=== PATIENT | male | born 1945 | race Caucasian/White ===

== ENCOUNTER 2023-06-25 12:36 | Inpatient (IN) | payer OTHER, SELFPAY ==
[2023-06-25] VITALS (16 sets, daily range): BP systolic 100–211; BP diastolic 42–77; BMI 29.6
--- NOTE | 2023-06-25 07:42 | ED.GENMED ---
History of Present Illness
<Claire Stoner FRAME CATCHER - Last Filed: 06/27/23 16:48>
General
Chief Complaint: Weakness
Source: patient
Exam Limitations: none
Time Seen by Provider: 06/25/23 07:41
Nursing documentation reviewed up to this point in time: agreed with
Travel History
Have you had any contact with someone who has COVID-19?: No
Do you have any symptoms of coronavirus? Fever > 100 degrees, chills, cough, shortness of breath, sore throat, loss of taste or smell, muscle aches, or headache?: No
History of Present Illness
History of Present Illness:
78-year-old male with history of A-fib on Xarelto, CAD, HTN, HLD, TX, CABG, stent, AAA, CKD 3 presents stating
5 days ago in the evening he felt chilled all night long, even with pajamas on and blankets
4 days ago developed constant thirst and feeling dehydrated and nausea w no vomiting. Nausea has subsided
Past 3 days feeling fatigued, weak, no appetite.
Denies CP, SOB, abd pain.
Has exacerbation of his chronic left side neck muscle pain, sees chiropractor weekly for this.
Has frequent urination, small amounts chronically.
Denies fever, diarrhea
No recent travel, no known sick contacts.
Past History
<Claire Stoner, FRAME CATCHER - Last Filed: 06/27/23 16:48>
Past History
ED Past Medical History: Arrthythmia, CAD, HTN, Hypercholesterolemia and Renal failure (CKI 3)
ED Past Surgical History: Cardiac (stents 2005, CABG x 3 2007, L femoral stent 2021), Orthopedic and Tonsilectomy
Patient has exhibited threatening behavior?: No
PSI?: No
Social History
Tobacco: Former smoker
Personal:
Living: with family
Employment: Employed
Review of Systems
<Claire Stoner, FRAME CATCHER - Last Filed: 06/27/23 16:48>
Review of Systems
Allergies reviewed?: Yes
All Other Systems: ROS reviewed and negative except as documented in HPI and ROS
Constitutional: Reports fever, fatigue and chills
EENT: Denies sore throat or runny nose
Respiratory: Denies trouble breathing
Cardiac: Reports palpitations (chronic a fib); Denies chest pain, diaphoresis or syncope
ABD/GI: Reports nausea and anorexia; Denies abdominal pain, vomiting, diarrhea, constipated, bloody stools or black stools
: Reports frequency; Denies dysuria, flank pain, difficulty voiding or urgency
Musculoskeletal: Reports neck pain (chronic intermittent left neck pain); Denies edema or back pain
Skin: Reports no symptoms
Neurological: Reports no symptoms
Phy Exam
<Claire Stoner, FRAME CATCHER - Last Filed: 06/27/23 16:48>
Physical Exam
Physical Exam:
GENERAL: No acute distress. A&Ox3.
CONSTITUTIONAL: T 100.3
EYES: PERRL, conjunctivae normal
ENMT: moist mucus membranes, Pharynx nl, TMs normal
RESPIRATORY: Regular respirations, nonlabored, lungs clear.
CARDIOVASCULAR: Irregularly irregular, rate controlled. No murmurs, no rubs.
GI: Soft, nontender, normal BS
MUSCULOSKELETAL: Tender left paracervical ST, limited ROM to rotation to left. No nuchal rigidity. Moves with ease. Well perfused. No edema
SKIN: Warm, dry, pink
PSYCH: Normal mood and affect. Well kept, interactive and appropriate
NEUROLOGIC: Awake, alert and oriented. No focal neurological deficits
Course
<Claire Stoner, FRAME CATCHER - Last Filed: 06/27/23 16:48>
Orders/Labs/Results
Orders:
Orders
06/25/23 07:53
0.9% Sodium Chloride 500 ml [Nss] 500 ml IV BOLUS
06/25/23 07:58
Electrocardiogram (*1) Urgent
Reason for Study: Fatigue / Weakness
EKG- Treatment ONCE
06/25/23 08:10
C-Reactive Protein Urgent
Comment: ADD ON
COVID-19 Antigen Urgent
Source: Nasal Swab
Complete Blood Count/With Diff Urgent
Comprehensive Metabolic Panel Urgent
Lactic Acid Q4H
Comment: CANCEL 2nd LACTIC ACID IF 1st LACTIC ACID IS LESS THAN 2
NT-proBNP Urgent
Troponin I Urgent
Blood Culture Q30M
JACKY Source: Blood/Venous
Specimen Description:
Influenza A+B Rapid Molecular Urgent
JACKY Source: Nasal Swab
Specimen Description:
Chest [CR Chest - 2 Views ] Urgent
Comment:
Reason For Exam: fever, fatigue, sig cardiac history
06/25/23 08:11
Blood Culture Q30M
JACKY Source: Blood/Venous
Specimen Description:
06/25/23 09:41
Urinalysis Reflex To Culture Urgent
Date Specimen was Collected: 06/25/23
Time Specimen was Collected: 09:39
06/25/23 Lunch
Cholesterol Lowering
At Your Request: Full Participation
Cholesterol Lowering: Sodium, 2 Gram
06/25/23 12:01
Add On- LAB Routine
Tests Added?: CRP
06/25/23 12:02
Influenza A+B Rapid Molecular Routine
JACKY Source: Nasal Swab
Specimen Description:
06/25/23 12:04
Admit/Transfer Patient As Directed
Co-Sign Provider:
Level of Care: Inpatient admission
Assign to:: Telemetry
Physician / Group: Pam/hospitalist
Diagnosis: L neck pain
Reason for Telemetry: Arrhythmia
Date to Stop Telemetry: 06/28/23
Time to Stop Telemetry: 11:00
Reason for Hospitalization: L neck pain
Expected length of stay greater than two midnights?: Yes
ELOS- Estimated Length of Stay in days: 5
I certify the patient meets the requirements for IP care: Yes
06/25/23 12:06
Code Status As Directed
Resuscitation Status: Full Code
06/25/23 12:15
0.9% Sodium Chloride 1000 ml [Nss] 1,000 ml IV 60 mls/hr
Lidocaine [Lidocaine 4% Patch] 1 patch TOPICAL DAILY
06/25/23 16:55
Acetaminophen [Tylenol] 650 mg PO Q4HPRN PRN
Ondansetron Injectable [Zofran] 4 mg IV Q6HPRN PRN
06/25/23 16:55
Activity As Directed
Activity Level: As Tolerated
Vital Signs As Directed
Frequency: Per unit guidelines
06/25/23 18:56
Troponin I Q8H
Blood Culture Q30M
JACKY Source: Blood/Venous
Specimen Description:
06/25/23 20:00
Remove Patch [Remove Lidocaine Patch] See Dose Instructions REMOVE DAILY@1999
06/25/23 22:00
Aspirin Low Dose EC [Aspir Low (Enteric Coated)] 81 mg PO HS
Atorvastatin [Lipitor] 40 mg PO HS
Rivaroxaban [Xarelto] 20 mg PO HS
Tamsulosin [Flomax] 0.4 mg PO HS
06/26/23 01:53
Basic Metabolic Panel IN AM
Complete Blood Count/No Diff IN AM
Magnesium IN AM
Troponin I Q8H
06/26/23 06:42
MR Cervical Spine Without Routine
Reason For Exam: neck pain with radiation to shoulder
Recent pill cam endoscopy?: No
06/26/23 08:00
Amlodipine [Norvasc] 10 mg PO DAILY
Finasteride [Proscar] 5 mg PO DAILY
Metoprolol Xl [Toprol Xl] 25 mg PO DAILY
06/27/23 06:49
Basic Metabolic Panel IN AM
Complete Blood Count/No Diff IN AM
06/28/23 06:00
Basic Metabolic Panel IN AM
Complete Blood Count/No Diff IN AM
06/28/23 11:00
DC Protocol for Telemetry ONCE
Abnormal Lab Results
06/25/23
08:10
WBC 11.9 H 10^3/uL
(4.8-10.8)
RBC 4.15 L 10^6/uL
(4.70-6.10)
Hgb 12.6 L g/dL
(13.0-18.0)
Hct 35.1 L %
(39.0-52.0)
Plt Count 119 L 10^3/uL
(130-400)
MPV 11.6 H fL
(7.4-10.4)
Abs Immat Gran (auto) 0.1 H 10^3/uL
(0-0.05)
Absolute Neuts (auto) 10.4 H 10^3/uL
(1.4-6.5)
Absolute Lymphs (auto) 0.4 L 10^3/uL
(1.2-3.4)
Absolute Monos (auto) 1.0 H 10^3/uL
(0.1-0.6)
Immature Gran % 0.7 H %
(0-0.5)
Neutrophils % 87.1 H %
(42.2-75.2)
Lymphocytes % 3.7 L %
(20.5-51.1)
Sodium 129 L mmol/L
(135-145)
BUN 34 H mg/dl
(9-20)
Creatinine 1.7 H mg/dL
(0.7-1.3)
Glucose 138 H mg/dl
(70-99)
Total Bilirubin 3.2 H mg/dl
(0.2-1.3)
C-Reactive Protein 186.50 H mg/L
(0.0-10.00)
06/25/23 08:10
06/25/23 08:10
Vital Signs
Initial and Last Documented VS:
Initial Vital Signs
Temp Pulse Resp BP Pulse Ox
98.4 F 64 18 119/57 93
06/25/23 07:31 06/25/23 07:31 06/25/23 07:31 06/25/23 07:31 06/25/23 07:31
Last Documented Vital Signs
Temp Pulse Resp BP Pulse Ox
97.6 F 59 18 162/59 96
06/27/23 15:15 06/27/23 15:15 06/27/23 15:15 06/27/23 15:15 06/27/23 15:15
Nanny/Household Manager consulted with Physician
Nanny/Household Manager consulted with physician?: Yes
Name of Physician Consulted: Galo
<Kris Rosenthal, DO - Last Filed: 06/25/23 09:42>
Orders/Labs/Results
Orders:
Orders
06/25/23 07:53
0.9% Sodium Chloride 500 ml [Nss] 500 ml IV BOLUS
06/25/23 07:58
Electrocardiogram (*1) Urgent
Reason for Study: Fatigue / Weakness
EKG- Treatment ONCE
06/25/23 08:10
C-Reactive Protein Urgent
Comment: ADD ON
COVID-19 Antigen Urgent
Source: Nasal Swab
Complete Blood Count/With Diff Urgent
Comprehensive Metabolic Panel Urgent
Lactic Acid Q4H
Comment: CANCEL 2nd LACTIC ACID IF 1st LACTIC ACID IS LESS THAN 2
NT-proBNP Urgent
Troponin I Urgent
Blood Culture Q30M
JACKY Source: Blood/Venous
Specimen Description:
Influenza A+B Rapid Molecular Urgent
JACKY Source: Nasal Swab
Specimen Description:
Chest [CR Chest - 2 Views ] Urgent
Comment:
Reason For Exam: fever, fatigue, sig cardiac history
06/25/23 08:11
Blood Culture Q30M
JACKY Source: Blood/Venous
Specimen Description:
06/25/23 09:41
Urinalysis Reflex To Culture Urgent
Date Specimen was Collected: 06/25/23
Time Specimen was Collected: 09:39
06/25/23 Lunch
Cholesterol Lowering
At Your Request: Full Participation
Cholesterol Lowering: Sodium, 2 Gram
06/25/23 12:01
Add On- LAB Routine
Tests Added?: CRP
06/25/23 12:02
Influenza A+B Rapid Molecular Routine
JACKY Source: Nasal Swab
Specimen Description:
06/25/23 12:04
Admit/Transfer Patient As Directed
Co-Sign Provider:
Level of Care: Inpatient admission
Assign to:: Telemetry
Physician / Group: Pam/hospitalist
Diagnosis: L neck pain
Reason for Telemetry: Arrhythmia
Date to Stop Telemetry: 06/28/23
Time to Stop Telemetry: 11:00
Reason for Hospitalization: L neck pain
Expected length of stay greater than two midnights?: Yes
ELOS- Estimated Length of Stay in days: 5
I certify the patient meets the requirements for IP care: Yes
06/25/23 12:06
Code Status As Directed
Resuscitation Status: Full Code
06/25/23 12:15
0.9% Sodium Chloride 1000 ml [Nss] 1,000 ml IV 60 mls/hr
Lidocaine [Lidocaine 4% Patch] 1 patch TOPICAL DAILY
06/25/23 16:55
Acetaminophen [Tylenol] 650 mg PO Q4HPRN PRN
Ondansetron Injectable [Zofran] 4 mg IV Q6HPRN PRN
06/25/23 16:55
Activity As Directed
Activity Level: As Tolerated
Vital Signs As Directed
Frequency: Per unit guidelines
06/25/23 18:56
Troponin I Q8H
Blood Culture Q30M
JACKY Source: Blood/Venous
Specimen Description:
06/25/23 20:00
Remove Patch [Remove Lidocaine Patch] See Dose Instructions REMOVE DAILY@1999
06/25/23 22:00
Aspirin Low Dose EC [Aspir Low (Enteric Coated)] 81 mg PO HS
Atorvastatin [Lipitor] 40 mg PO HS
Rivaroxaban [Xarelto] 20 mg PO HS
Tamsulosin [Flomax] 0.4 mg PO HS
06/26/23 01:53
Basic Metabolic Panel IN AM
Complete Blood Count/No Diff IN AM
Magnesium IN AM
Troponin I Q8H
06/26/23 06:42
MR Cervical Spine Without Routine
Reason For Exam: neck pain with radiation to shoulder
Recent pill cam endoscopy?: No
06/26/23 08:00
Amlodipine [Norvasc] 10 mg PO DAILY
Finasteride [Proscar] 5 mg PO DAILY
Metoprolol Xl [Toprol Xl] 25 mg PO DAILY
06/27/23 06:49
Basic Metabolic Panel IN AM
Complete Blood Count/No Diff IN AM
06/28/23 06:00
Basic Metabolic Panel IN AM
Complete Blood Count/No Diff IN AM
06/28/23 11:00
DC Protocol for Telemetry ONCE
Abnormal Lab Results
06/25/23
08:10
WBC 11.9 H 10^3/uL
(4.8-10.8)
RBC 4.15 L 10^6/uL
(4.70-6.10)
Hgb 12.6 L g/dL
(13.0-18.0)
Hct 35.1 L %
(39.0-52.0)
Plt Count 119 L 10^3/uL
(130-400)
MPV 11.6 H fL
(7.4-10.4)
Abs Immat Gran (auto) 0.1 H 10^3/uL
(0-0.05)
Absolute Neuts (auto) 10.4 H 10^3/uL
(1.4-6.5)
Absolute Lymphs (auto) 0.4 L 10^3/uL
(1.2-3.4)
Absolute Monos (auto) 1.0 H 10^3/uL
(0.1-0.6)
Immature Gran % 0.7 H %
(0-0.5)
Neutrophils % 87.1 H %
(42.2-75.2)
Lymphocytes % 3.7 L %
(20.5-51.1)
Sodium 129 L mmol/L
(135-145)
BUN 34 H mg/dl
(9-20)
Creatinine 1.7 H mg/dL
(0.7-1.3)
Glucose 138 H mg/dl
(70-99)
Total Bilirubin 3.2 H mg/dl
(0.2-1.3)
C-Reactive Protein 186.50 H mg/L
(0.0-10.00)
06/25/23 08:10
06/25/23 08:10
Vital Signs
Initial and Last Documented VS:
Initial Vital Signs
Temp Pulse Resp BP Pulse Ox
98.4 F 64 18 119/57 93
06/25/23 07:31 06/25/23 07:31 06/25/23 07:31 06/25/23 07:31 06/25/23 07:31
Last Documented Vital Signs
Temp Pulse Resp BP Pulse Ox
97.6 F 59 18 162/59 96
06/27/23 15:15 06/27/23 15:15 06/27/23 15:15 06/27/23 15:15 06/27/23 15:15
<Clairenicole Stoner, FRAME CATCHER - Last Filed: 06/27/23 16:48>
MDM/Problems Addressed
Differential Diagnosis Includes:
viral vs bacterial illness, UTI, Covid, Flu,
MDM/Problems Addressed:
78-year-old male with history of A-fib on Xarelto, CAD, HTN, HLD, TX, CABG, stent, AAA, CKD 3 presents stating
5 days ago in the evening he felt chilled all night long, even with pajamas on and blankets
4 days ago developed constant thirst and feeling dehydrated and nausea w no vomiting. Nausea has subsided
Past 3 days feeling fatigued, weak, no appetite.
Denies CP, SOB, abd pain.
Has exacerbation of his chronic left side neck muscle pain, sees chiropractor weekly for this.
Has frequent urination, small amounts chronically.
Denies fever, diarrhea
No recent travel, no known sick contacts.
Temp 100.3 by this examiner, no meningeal signs.
Pulse ox 95% RA
Mildly ill appearing, pleasant, alert & Oriented
9:09 AM
EKG: Afib Rate 70
CBC: Mild leukocytosis, mild thrombocytopenia,
CMP: Na+ 129 (chronic hyponatremia) BUN/creat consistent with his CKD
Troponin: WNL
BNP at baseline
Infuenza A&B neg
Covid neg
10:[address] Rosenthal and to evaluate, states she is not comfortable taking patient home
Chest x-ray: Radiology report read: IMPRESSION:
Pulmonary vasculature is top normal. Please correlate for any signs of early congestive heart failure.
There is hyperaeration consistent with changes of COPD
Plan: Admit: Acute dehydration, hyponatremia, generalized weakness, low-grade fever
Hospitalist notified of admission
Chronic conditions affecting care: HTN, CAD, Arrhythmia (Afib), PVD and Kidney disease
<Claire Stoner FRAME CATCHER - Last Filed: 06/27/23 16:48>
*Critical Care Note
Total Time (30-74mins, 75-104mins- exclusive of procedures): Not Applicable
ED Attending Note
<Claire Stoner FRAME CATCHER - Last Filed: 06/27/23 16:48>
-
Portions of this chart may have been created with voice recognition software.� Occasional wrong word or��sound alike� substitutions may have occurred due to the inherent limitations of voice recognition software.
<Kris Rosenthal DO - Last Filed: 06/25/23 09:42>
ED Attending Note
Patient seen and examined by attending physician: Yes
I performed the substantive portion of visit, reviewed & personally made and approve the management plan that is documented in note by myself or FREDDIE.: Yes
ED Attending Note:
I have seen and evaluated the patient with a [id number] encounter. I have spoken to the advance practicer provider and involved in the medical history, the physical exam, medical decision making.
Evaluation and management service: agree unless noted differently below.
Results interpretation: agree unless noted differently below.
Focused HPI: 78-year-old male presenting with generalized weakness. Patient initially thought he could have a viral bug but was worried how long he has been affected. at bedside is concerned that he is weaker than normal. He now needs help
getting out of bed and getting his clothes on
Physical exam: Dry mucous membranes. Abdomen soft and nontender. No leg edema
Medical Decision Making: Patient complains of general weakness. Patient does appear hypovolemic. However, chest x-ray concerning for early CHF. Patient states becomes weak with exertion. Urinalysis pending but will likely admit given age and
complaints
Discharge Plan
Departure
Patient Disposition: Admit
Date of Disposition: 06/25/23
Time of Disposition: 10:27
Admit to: Med/Surg
Presentation/result/management discussed w/ accepting MD/DO: Hospitalist
Condition: Fair
Covid-19: Negative COVID-19
Discharge Problem:
General weakness, Hyponatremia, Acute dehydration
Interventions
Interventions:
*Risk Screen - Suicide Last Done: 06/25/23 07:31
*General Assessment Last Done: 06/25/23 07:31
*Neglect/Abuse Screening Last Done: 06/25/23 07:31
ED- Fall Risk Assessment Last Done: 06/25/23 08:41
*ED COVID-19 Vaccine History Last Done: 06/25/23 08:41
*Nursing Disposition Last Done: 06/25/23 18:05
ED- Neurological Assessment Last Done: 06/25/23 08:41
ED- Pulmonary Assessment Last Done: 06/25/23 08:41
Discharge Date and Time
Discharge Date/Time: 06/25/23 18:10
[2023-06-25] MEDS: NSS 500 IV (08:11)
[2023-06-25 08:45] LABS: % Basophils 0.3 % (0-2); % Eosinophils 0.1 % (0-6); % Immature Granulocytes 0.7 % (0-0.5); % Lymphocytes 3.7 % (20.5-51.1); % Monocytes 8.1 % (1.7-9.3); % Neutrophils 87.1 % (42.2-75.2); Absolute Immature Granulocytes 0.1 10^3/uL (0-0.05); Absolute Lymphocytes 0.4 10^3/uL (1.2-3.4); Absolute Neutrophils 10.4 10^3/uL (1.4-6.5); Hematocrit 35.1 % (39.0-52.0); Hemoglobin 12.6 g/dL (13.0-18.0); Mean Corp Hgb Conc. 35.9 g/dL (33.0-37.0); Mean Corpuscular Hgb 30.4 pg (27.0-31.0); Mean Corpuscular Volume 84.6 fL (80.0-94.0); Mean Platelet Volume 11.6 fL (7.4-10.4); Nucleated Red Blood Cells % 0 % (-); Platelet Count 119 10^3/uL (130-400); Red Blood Cell Count 4.15 10^6/uL (4.70-6.10); Red Cell Dist. Width 14.2 % (11.5-14.5); White Blood Cell Count 11.9 10^3/uL (4.8-10.8)
[2023-06-25 08:56] LABS: ALT (SGPT) 35 U/L (0-50); AST (SGOT) 42 U/L (17-59); Albumin 3.8 g/dl (3.5-5.0); Alkaline Phosphatase 76 U/L (38-126); Blood Urea Nitrogen 34 mg/dl (9-20); Calcium 9.2 mg/dl (8.4-10.2); Carbon Dioxide 23 mmol/L (22-30); Chloride 98 mmol/L (98-107); Glucose 138 mg/dl (70-99); Potassium 3.8 mmol/L (3.5-5.1); Sodium 129 mmol/L (135-145); Total Bilirubin 3.2 mg/dl (0.2-1.3); Total Protein 6.5 g/dl (6.3-8.2)
[2023-06-25 09:08] LABS: NT-proBNP 3240 pg/ml; Troponin I 0.028 ng/ml
--- NOTE | 2023-06-25 09:30 | EDRN ---
Contacted lab to verify specimen was acceptable for the COVID test as it had not resulted. Was told it would be about 2 more minutes.
Reminded patient I needed a specimen of urine. patient states he hasn't had to go even though he has been going so frequently at home. Dr. Rosenthal at the bedside assessing the patient.
[2023-06-25 09:37] LABS: COVID-19 Antigen Negative (Negative)
[2023-06-25 10:14] LABS: Urine Albumin Trace (Neg - Trace); Urine Bilirubin Negative (Negative); Urine Glucose Negative (Negative); Urine Ketone Negative (Negative); Urine Leukocyte Negative (Negative); Urine Nitrite Negative (Negative); Urine Occult Blood Negative (Negative); Urine Urobilinogen Negative (Neg - 1+)
[2023-06-25 10:15] LABS: Urine Character Clear (Clear); Urine Color Yellow
--- NOTE | 2023-06-25 11:06 | HPS.HSE ---
Family Physician
-
Family Physician: Cory Gannon
Chief Complaint
-
neck pain, chills, weakness
History of Present Illness
HPI: 78-year-old male PMH Permanent A-fib on Xarelto, CAD s/p stent and CABG, HTN, HLD, AAA, CKD 3, carotid stenosis; presented with localized L neck pain (worse than baseline), chills, nausea, weakness and loss of appetitive ongoing for 3 days TYPING SECTION CHIEF.
He denies to fever, CP, SOB, abd pain, change in urination etc.
Medical History
Past Medical History
Past Medical History: Reports Other
Additional Past Medical History:
Past medical history archive reviewed
Recent admission for pneumonia
Acute congestive heart failure with preserved ejection fraction
Permanent atrial fibrillation
Sepsis recently attributed to pneumonia
Coronary artery disease status post CABG
Peripheral vascular disease with, iliac artery angioplasty and occluded right SFA
Bilateral coronary artery stenosis
Bilateral renal artery stenosis
Dyslipidemia
Hypertension
Chronic anemia
Pulmonary hypertension
Surgical history:
FERNANDO cardioversion
Coronary artery bypass graft
Cardiac cath and stenting
Left cataract surgery
Lower extremity angiogram
Tonsillectomy
Social history: Lives at home with the family, denies smoking and drinks a glass of wine daily, and is independent.
Family history: Positive for hypertension coronary artery disease.
Past Surgical History: Reports Other
Social History
Unable to obtain full social history at this time due to: Other
Tobacco: Former Smoker (quit 2005)
Personal:
Living: With Family
Family History
Family History: Other
Allergies / Home Medications
uiAllergies reflects when Allergies were last updated in [facility].
Home Medications with original date entered in [facility]
Allergy/Medication List:
Allergies
Allergy/AdvReac Type Severity Reaction Status Date / Time
No Known Allergies Allergy Verified 06/25/23 07:31
Home Medications
aspirin 81 mg tablet,delayed release 81 mg PO HS Blood clot prevention/tx 12/05/14
atorvastatin 40 mg tablet 40 mg PO HS High cholesterol 12/05/14
rivaroxaban 20 mg tablet (Xarelto) 20 mg PO HS Blood clot prevention/tx 06/09/21
losartan 100 mg tablet 100 mg PO DAILY Blood Pressure 12/10/22
torsemide 10 mg tablet 10 mg PO DAILY Fluid Retention/Swelling 12/10/22
[place] Xl 600 mg PO BID Supplement 06/25/23
acetaminophen 500 mg tablet (Tylenol Extra Strength) 500 mg PO Q6H PRN mild pain 06/25/23
amlodipine 10 mg tablet 10 mg PO DAILY Blood Pressure 06/25/23
cholecalciferol (vitamin D3) 125 mcg (5,000 unit) tablet 125 mcg PO DAILY@1300 Supplement 06/25/23
coQ10 (ubiquinol) 200 mg capsule 200 mg PO DAILY@1300 Supplement 06/25/23
finasteride 5 mg tablet 5 mg PO DAILY prostate condition 06/25/23
glucosamine-chondroitin 750 mg-600 mg tablet 2 tab PO DAILY@1300 Supplement 06/25/23
mczkzxau-oxbfvi-vjbpm extract 5 mg-6 mg-150 mg capsule (Fruit and Vegetable Daily) 6 cap PO DAILY Supplement 06/25/23
metoprolol succinate 25 mg tablet,extended release 24 hr (Toprol XL) 25 mg PO DAILY Blood Pressure 06/25/23
spironolactone 50 mg tablet 50 mg PO DAILY Blood Pressure 06/25/23
tamsulosin 0.4 mg capsule 0.4 mg PO HS Urinary Issue 06/25/23
therapeutic multivitamin 1 tab PO DAILY@1300 Supplement 06/25/23
turmeric 400 mg capsule 400 mg PO DAILY@1300 Supplement 06/25/23
Review of Systems
-
Constitutional: Reports See HPI
Musculoskeletal: Reports See HPI
Physical Exam
Vital Signs
Vital Signs
Temp Pulse Resp BP Pulse Ox
37.9 C 64 18 119/57 93
06/25/23 08:40 06/25/23 07:31 06/25/23 07:31 06/25/23 07:31 06/25/23 07:31
Physical Exam
General: Well Developed, Well Nourished, No Apparent Distress, Comfortable and Conversant
HEENT: NormoCephalic, Moist mucous membranes and Atraumatic
Respiratory: Clear
Cardiac: S1/S2 and Irregular Rhythm; No Murmur or Rub
GI: Soft, Non Tender, Non Distended and Normal Bowel Sounds; No Organomegaly
Rectal: Deferred by Provider
Musculoskeletal: No Clubbing, No Cyanosis, No Edema and Other (L neck localized pain)
Skin: No Rash
Neuro: Awake
Psych: Calm and Intact Judgment/Insight
Laboratory Results
-
06/25/23 08:10
06/25/23 08:10
Laboratory Results
Lactic Acid Cancelled 06/25/23 12:15
Total Bilirubin 3.2 mg/dl (0.2-1.3) H 06/25/23 08:10
AST 42 U/L (17-59) 06/25/23 08:10
ALT 35 U/L (0-50) 06/25/23 08:10
Alkaline Phosphatase 76 U/L (38-126) 06/25/23 08:10
Troponin I 0.028 ng/ml 06/25/23 08:10
Data Reviewed
-
Lab Data: Labs Reviewed by me
Impression/Plan
-
HPI: 78-year-old male PMH Permanent A-fib on Xarelto, CAD s/p stent and CABG, HTN, HLD, AAA, CKD 3, carotid stenosis; presented with localized L neck pain (worse than baseline), chills, nausea, weakness and loss of appetitive ongoing for 3 days TYPING SECTION CHIEF.
He denies to fever, CP, SOB, abd pain, change in urination etc.
A/P:
# localized L neck pain (worse than baseline), likely MSL in etiology
check MRI cervical spine to r/o spinal cord involvement
Tylenol PRN and start trial of lidocaine patch
offered Flexeril but pt would like to hold off for now due to S/E profile
PT OT eval
# weakness/poor PO intake with prerenal RANCHO on CKD 3
# Hyponatremia likely due to above
SCr 1.7 from baseline 1.1
s/p NSS 500 cc in the ED, cont gentle IVF
Monitor BMP
Hold TYPING SECTION CHIEF losartan/Aldactone with RANCHO
# chills without fever
COVID negative, pending Flu
can check blood Cx but doubt would be positive
Check CRP
# non-ischemic myocardia injury
trend troponin until peak/plateaued
Other PMH:
# Permanent A-fib
cont TYPING SECTION CHIEF Toprol and Xarelto
# CAD s/p CABG
# HTN
cont TYPING SECTION CHIEF Toprol
hold losartan/Aldactone due to RANCHO
# HLD
# AAA
# h/o carotid stenosis
DVT ppx: TYPING SECTION CHIEF Xalreto
FC
[2023-06-25] MEDS: LIDOCAINE 4% PATCH 1 PATCH TOPICAL (15:48)
[2023-06-25] MEDS: NSS IV (20:12)
[2023-06-25] MEDS: NSS 1000 IV (20:12)
[2023-06-25] MEDS: LIPITOR 40 MG PO (21:44)
[2023-06-25] MEDS: ASPIR LOW (ENTERIC COATED) 81 MG PO (21:44)
[2023-06-25] MEDS: FLOMAX 0.400000000000000022 MG PO (21:44)
[2023-06-25] MEDS: XARELTO 20 MG PO (21:44)
[2023-06-25] MEDS: TYLENOL 650 MG PO (23:01)
[2023-06-26] VITALS (7 sets, daily range): BP systolic 147–172; BP diastolic 55–71
[2023-06-26 00:35] LABS: Procalcitonin 0.89 ng/ml (0.0-0.25)
--- NOTE | 2023-06-26 01:25 | W.PN.UPDATE ---
Update Note
Progress Note Update
Blood culture result shows Gram Positive Cocci, temp of 101.6, WBC 12.9 in AM 4/5, UA negative, chest xray neg, Pro-pola elevated 0.89, BP 101/63 HR 78 19 92% RA, no open wounds or abscess noted, Possible sepsis, Infection from unknown source at
present, MRI spinal pending.
Will start on Vancomycin IV, Zosyn IV and NSS 60 cc/hr. will Consult ID, Patient has no new symptoms.
[2023-06-26] MEDS: ZOSYN 50 IV ×2 (01:44→08:38)
[2023-06-26] MEDS: VANCOCIN 540 MG IV (02:16)
[2023-06-26 02:19] LABS: Blood Urea Nitrogen 37 mg/dl (9-20); Calcium 9.1 mg/dl (8.4-10.2); Carbon Dioxide 22 mmol/L (22-30); Chloride 100 mmol/L (98-107); Estimated Creatinine Clearance 45 ml/min; Glucose 132 mg/dl (70-99); Magnesium 1.8 mg/dl (1.6-2.3); Potassium 3.8 mmol/L (3.5-5.1); Sodium 130 mmol/L (135-145); eGFR 47.06
[2023-06-26 02:28] LABS: Hematocrit 33.4 % (39.0-52.0); Hemoglobin 11.9 g/dL (13.0-18.0); Mean Corp Hgb Conc. 35.6 g/dL (33.0-37.0); Mean Corpuscular Hgb 30.1 pg (27.0-31.0); Mean Corpuscular Volume 84.6 fL (80.0-94.0); Mean Platelet Volume 11.6 fL (7.4-10.4); Platelet Count 114 10^3/uL (130-400); Red Blood Cell Count 3.95 10^6/uL (4.70-6.10); Red Cell Dist. Width 14.4 % (11.5-14.5); White Blood Cell Count 10.7 10^3/uL (4.8-10.8)
[2023-06-26 02:32] LABS: Troponin I 0.043 ng/ml
[2023-06-26 07:15] LABS: Troponin I 0.024 ng/ml
--- NOTE | 2023-06-26 08:15 | PHA.VAN.IN ---
Assessment
- Assessment
Renal Function: Appears similar to baseline
Maximum Temperature: 101.6 06/25/23@23:55
Concomitant Antimicrobials: piperacillin/tazo
AUC Dosing Plan
- Dosing Variables
Dosing Weight (kg): 101
Dosing CrCl (ml/min): 45
Vd coefficient (L/kg): 0.7
Plan
- Plan
Initial / Loading Dose: 2000 mg x 1 dose ~0200 06/26/23
Maintenance Regimen: dose by random level for now
Monitoring: random 06/26 06
If SCr remains at current level, can trial 1500 mg q24h ( AUC 524, Trough 13.1, T1/2 16.6h)Will give one dose of 1500 mg today and draw random level in the AM
Pharmacokinetics Vancomycin I
- -
Patient Age: 78
Patient Sex: Male
Vancomycin Day #: 1
Indication: Bacteremia
Requesting Provider: Micah Ewing
Height / Weight:
Height 6 ft 1 in
Actual Weight 101.605 kg
Pertinent Past Medical History: CKD 3
- Vital Signs / Lab Results
Temp Pulse Resp BP Pulse Ox
97.5 F 64 18 147/62 94
06/26/23 03:09 06/26/23 03:09 06/26/23 03:09 06/26/23 03:09 06/26/23 03:09
Lab Results - Hematology
06/25/23 06/26/23
08:10 01:53
WBC 11.9 H 10.7
Lab Results - Chemistry
06/25/23 06/26/23
08:10 01:53
BUN 34 H 37 H
Creatinine 1.7 H 1.5 H
Estimated Creat Clear 45
Albumin 3.8
06/25/23 06/25/23
08:10 12:15
Lactic Acid 1.0 Cancelled
Lab Results - Urine
06/25/23
09:41
Urine Nitrite (Reflex) Negative
Leukocyte Esterase Rfl Negative
Microbiology Results
06/25/23 08:11 Blood Culture - Preliminary
Blood/Venous Positive culture in progress
Gram Stain - Final
06/25/23 08:10 Blood Culture - Preliminary
Blood/Venous Positive culture in progress
Gram Stain - Final
06/25/23 08:10 Influenza Types A & B (YANNI) - Final
Nasal Swab Negative for Influenza A & B, NAAT
Negative results must be combined with clinical observations
and patient history.
Nucleic Acid Amplification test (NAAT)performed on the
[employer] platform.
[2023-06-26] MEDS: TOPROL XL 25 MG PO (08:37)
[2023-06-26] MEDS: NORVASC 10 MG PO (08:37)
[2023-06-26] MEDS: PROSCAR 5 MG PO (08:37)
[2023-06-26] MEDS: LIDOCAINE 4% PATCH 1 PATCH TOPICAL (08:38)
--- NOTE | 2023-06-26 10:54 | W.PN.HOSP.TC ---
Today's Communication/Plan
-
see A/P
Assessment / Plan
Assessment / Plan
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
He denies to fever, CP, SOB, abd pain, change in urination etc.
A/P:
# localized L neck pain (worse than baseline), likely MSL in etiology
check MRI cervical spine to r/o spinal cord involvement
Tylenol PRN and start trial of lidocaine patch
offered Flexeril but pt would like to hold off due to S/E profile
PT OT eval
# weakness/poor PO intake with prerenal RANCHO on CKD 3
# Hyponatremia likely due to above
SCr 1.7 -> 1.5 today; baseline 1.1
s/p NSS 500 cc in the ED, observe off gentle IVF (admission CXR actually noted top normal pulmonary vasculature which could indicate early congestive heart failure).
Monitor BMP
Hold SKYDIVING INSTRUCTOR losartan/Aldactone with RANCHO
# sepsis POA due to bacteremia , currently unclear source
follow blood culture S/S, check repeat blood Cx until clearance
COVID/Flu negative
Procal elevated at 0.89 (but pt also has RANCHO)
CRP elevated at 186
Started vanc/Zosyn, cont
ID consulted
# non-ischemic myocardia injury
trend troponin until peak/plateaued
Other PMH:
# Permanent A-fib
cont SKYDIVING INSTRUCTOR Toprol and Xarelto
# CAD s/p CABG
# HTN
cont SKYDIVING INSTRUCTOR Toprol
hold losartan/Aldactone due to RANCHO
# HLD
# AAA
# h/o carotid stenosis
DVT ppx: SKYDIVING INSTRUCTOR Xalreto
FC
DW son at bedside
total time spent 51 min
Anticipated Discharge: > 48 hours
Subjective/Interval History
-
Date of Service: June 26, 2023
Objective Data
-
Labs:
Laboratory Results
06/26/23
01:53
WBC 10.7
Hgb 11.9 L
Hct 33.4 L
Plt Count 114 L
Sodium 130 L
Potassium 3.8
Chloride 100
Carbon Dioxide 22
BUN 37 H
Creatinine 1.5 H
Glucose 132 H
Calcium 9.1
Vital Signs:
Vital Signs
Temp Pulse Resp BP Pulse Ox
36.5 C 61 18 153/65 94
06/26/23 07:45 06/26/23 07:45 06/26/23 07:45 06/26/23 07:45 06/26/23 07:45
I&O
06/25/23 06/26/23 06/27/23
06:59 06:59 06:59
Intake Total 1230 / 1230
Balance 1230 / 1230
Review of Systems
-
History Source: Patient
All other systems: Reviewed and negative
Physical Exam
-
General: Well Developed, Well Nourished, No Apparent Distress and Comfortable
HEENT: Normocephalic and Atraumatic
Respiratory: Clear to Auscultation and Non Labored Respirations; Negative Accessory Resp Muscle Use
Cardiac: Regular Rhythm and S1/S2
GI: Soft, Nontender and Nondistended
Skin: Warm and Dry
Neuro: Awake and AO x 3
Hematologic / Lymphatic: No Lymphadenopathy
Psych: Calm and Intact Judgement/Insight
Data Reviewed
-
Labs: Labs Reviewed by me
--- NOTE | 2023-06-26 12:09 | CON.ID ---
Consultation
-
Date/Time Consultation Requested: 06/26/2023 0622
Date/Time Consultation Performed: 06/26/2023 1210
Requesting Provider: Dr. Chey Orozco
Performing Provider: Dr. Tiesha Eckert
Reason for Consultation: Neck pain, bacteremia
Chief Complaint / Past History
Chief Complaint
fever, chills
History of Present Illness
78 year old male with Afib, CAD, PAD, CKD3 who started having chills on 06/21. + subjective fever. + weakness, poor appetite. He came to ED 06/25/23. T=101.5, WBC 11.9. Started on Vanco/zosyn. Blood cx's x 3 + strep. He c/p acute on chronic left neck
pain. Pain radiates to back of neck. No recent neck injury. He banged his left thurman agains the car door 4 weeks ago; the wound has healed after 3 weeks. No recent dental work. No SOB. + mild cough after eating. No sinus congestion or sore throat.
No ill contacts.
Past History
Additional Past Medical History:
Afib
CAD s/p CABG, stent
HFpEF
HTN
AAA
CKD3
Peripheral vascular disease with, iliac artery angioplasty and occluded right SFA
Carotid stenosis
pulmonary hypertension
bilateral renal stenosis s/p stents
BPH
Allergy History:
No Known Allergies Allergy (Verified 06/25/23 07:31)
Medications Reviewed: Yes
Current Antibiotics:
Vancomycin
Zosyn
Social History
Tobacco: Former Smoker
Alcohol: Daily (1 glass of wine)
Drug: None
Personal:
Family History
Family History: Not Pertinent
Review of Systems
Review of Systems
General: Fever, Chills and Change in Appetite
HEENT: Negative Sinus Problems, Headache or Pharyngitis
Gasteroenterology: Other (no diarrhea); Negative Nausea or Vomiting
Genital / Urological: Negative Dysuria or Flank Pain
Endocrine: Weakness
Skin / Hair / Nails: Negative Rash
Neurological: Negative Dizziness
All systems: All other systems were reviewed and were negative
Vital Signs
Temp Pulse Resp BP Pulse Ox
98.1 F 66 18 158/55 96
06/26/23 11:18 06/26/23 11:18 06/26/23 11:18 06/26/23 11:18 06/26/23 11:18
Selected Entries
06/25/23
23:55
Temp 101.6 F H
Physical Exam
Physical Exam
Constitutional: No Acute Distress and Comfortable
Eyes: No Conjunctival Hemorrhage and Sclera Anicteric
Pharynx: Benign
Cardiovascular: Irregular Rate and S1/S2
Pulmonary: Clear
Gastrointestinal: Soft, Non Tender, Non Distended and Normal Bowel Sounds
Genito-Urinary: Negative CVA Tenderness
Extremities: Negative Edema
Musculoskeletal: Other (Neck and C-spine without erythema/induration/point tenderness)
Wound: Negative None
Neurological: AO x 3; Negative Meningeal Signs
Lab / Diagnostic Study Results
06/26/23 01:53
06/26/23 01:53
Abs Immat Gran (auto) 0.1 10^3/uL (0-0.05) H 06/25/23 08:10
Absolute Neuts (auto) 10.4 10^3/uL (1.4-6.5) H 06/25/23 08:10
Absolute Lymphs (auto) 0.4 10^3/uL (1.2-3.4) L 06/25/23 08:10
Absolute Monos (auto) 1.0 10^3/uL (0.1-0.6) H 06/25/23 08:10
Absolute Basos (auto) 0.0 10^3/uL (0-0.2) 06/25/23 08:10
Immature Gran % 0.7 % (0-0.5) H 06/25/23 08:10
Neutrophils % 87.1 % (42.2-75.2) H 06/25/23 08:10
Lymphocytes % 3.7 % (20.5-51.1) L 06/25/23 08:10
Monocytes % 8.1 % (1.7-9.3) 06/25/23 08:10
Eosinophils % 0.1 % (0-6) 06/25/23 08:10
Basophils % 0.3 % (0-2) 06/25/23 08:10
Lactic Acid Cancelled 06/25/23 12:15
C-Reactive Protein 186.50 mg/L (0.0-10.00) H 06/25/23 08:10
Procalcitonin 0.89 ng/ml (0.0-0.25) H 06/25/23 23:49
Microbiology Results
Micro:
06/25/23 18:56 Blood Culture - Preliminary
Blood/Venous Streptococcus species
Gram Stain - Preliminary
06/26/23 08:54 Blood Culture - Pending
Blood/Venous
06/25/23 08:11 Blood Culture - Preliminary
Blood/Venous Positive culture in progress
Gram Stain - Final
06/25/23 08:10 Blood Culture - Preliminary
Blood/Venous Positive culture in progress
Gram Stain - Final
06/25/23 08:10 Influenza Types A & B (YANNI) - Final
Nasal Swab Negative for Influenza A & B, NAAT
Negative results must be combined with clinical observations
and patient history.
Nucleic Acid Amplification test (NAAT)performed on the
[employer] platform.
06/25/23 CXR: Pulmonary vasculature is top normal
Assessment / Plan
# Streptococcal bacteremia (3 sets bcx's)
# Sepsis
# Acute on chronic left neck pain
-Source of bacteremia unclear at this time
-Agree with MRI C-spine. If negative, TTE Wednesday
-Follow repeat blood cultures.
-DC Gladis Frazier
-Start ceftriaxone
- Trend temps.
[2023-06-26] MEDS: ROCEPHIN 2000 MG IV (13:51)
[2023-06-26] MEDS: STERILE WATER FOR INJECTION 20 ML IV (13:51)
[2023-06-26] MEDS: ASPIR LOW (ENTERIC COATED) 81 MG PO (21:34)
[2023-06-26] MEDS: LIPITOR 40 MG PO (21:34)
[2023-06-26] MEDS: FLOMAX 0.400000000000000022 MG PO (21:34)
[2023-06-26] MEDS: XARELTO 20 MG PO (21:34)
[2023-06-26] MEDS: TYLENOL 650 MG PO (22:44)
[2023-06-27] VITALS (7 sets, daily range): BP systolic 145–169; BP diastolic 58–66
[2023-06-27 06:58] LABS: Hematocrit 32.1 % (39.0-52.0); Hemoglobin 11.4 g/dL (13.0-18.0); Mean Corp Hgb Conc. 35.5 g/dL (33.0-37.0); Mean Corpuscular Hgb 30.3 pg (27.0-31.0); Mean Corpuscular Volume 85.4 fL (80.0-94.0); Mean Platelet Volume 10.2 fL (7.4-10.4); Platelet Count 129 10^3/uL (130-400); Red Blood Cell Count 3.76 10^6/uL (4.70-6.10); Red Cell Dist. Width 14.2 % (11.5-14.5); White Blood Cell Count 8.4 10^3/uL (4.8-10.8)
[2023-06-27 07:29] LABS: Blood Urea Nitrogen 28 mg/dl (9-20); Chloride 104 mmol/L (98-107); Estimated Creatinine Clearance 52 ml/min; Glucose 118 mg/dl (70-99); Potassium 4.1 mmol/L (3.5-5.1); Sodium 133 mmol/L (135-145); eGFR 55.88
[2023-06-27] MEDS: NORVASC 10 MG PO (08:26)
[2023-06-27] MEDS: PROSCAR 5 MG PO (08:26)
[2023-06-27] MEDS: LIDOCAINE 4% PATCH 1 PATCH TOPICAL (08:26)
[2023-06-27] MEDS: TOPROL XL 25 MG PO (08:26)
[2023-06-27 10:12] LABS: Carbon Dioxide 23 mmol/L (22-30)
--- NOTE | 2023-06-27 11:06 | W.PN.HOSP.TC ---
Today's Communication/Plan
-
see A/P
Assessment / Plan
Assessment / Plan
HPI: 78-year-old male PMH Permanent A-fib on Xarelto, CAD s/p stent and CABG, HTN, HLD, AAA, CKD 3, carotid stenosis; presented with localized L neck pain (worse than baseline), chills, nausea, weakness and loss of appetitive ongoing for 3 days [employer]OR OF [employer]IVITIES.
He denies to fever, CP, SOB, abd pain, change in urination etc.
A/P:
# localized L neck pain (worse than baseline)
MRI cervical spine without contrast noted moderate spinal cord compression and central canal stenosis at C4/C5 and C5/C6
Tylenol PRN and started trial of lidocaine patch
offered Flexeril but pt would like to hold off due to S/E profile
PT OT eval was declined by pt
curbsided Neurosurgery, recc MR cervical spine WITH contrast due to bacteremia (see below), ordered (IVF bolus before and after for renal protection)
# weakness/poor PO intake with prerenal RANCHO on CKD 3
# Hyponatremia likely due to above
SCr 1.7 -> 1.3 today; baseline 1.1
Monitor BMP
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
# sepsis POA due to Strep bacteremia , currently unclear source
follow blood culture S/S, repeat blood Cx clearing from /
COVID/Flu negative
Procal elevated at 0.89 (but pt also has RANCHO)
trend CRP
s/p vanc/Zosyn, changed to ceftriaxone
Check repeat MR cervical spine WITH contrast for bacteremia (IVF bolus before and after for renal protection)
Also check echo for source identification
ID on board
# non-ischemic myocardia injury
trend troponin until peak/plateaued
# HTN
hold losartan/Aldactone due to RANCHO
Change [employer]OR OF RELIGIOUS ACTIVITIES Toprol to Coreg 12.5 mg BID (for better BP effect)
add hydralazine IV PRN
Other PMH:
# Permanent A-fib
cont Xarelto
DIRECTOR OF RELIGIOUS ACTIVITIES Toprol changed to Coreg
# CAD s/p CABG
# HLD
# AAA
# h/o carotid stenosis
DVT ppx: DIRECTOR OF RELIGIOUS ACTIVITIES Xalreto
FC
DW on the phone
total time spent 51 min
Anticipated Discharge: 24 - 48 hours
Subjective/Interval History
-
Date of Service: June 27, 2023
Objective Data
-
Labs:
Laboratory Results
06/27/23
06:49
WBC 8.4
Hgb 11.4 L
Hct 32.1 L
Plt Count 129 L
Sodium 133 L
Potassium 4.1
Chloride 104
Carbon Dioxide 23
BUN 28 H
Creatinine 1.3
Glucose 118 H
Calcium 9.0
Vital Signs:
Vital Signs
Temp Pulse Resp BP Pulse Ox
36.4 C 94 18 145/58 97
06/27/23 07:30 06/27/23 08:26 06/27/23 07:30 06/27/23 09:59 06/27/23 07:30
I&O
06/26/23 06/27/23 06/28/23
06:59 06:59 06:59
Intake Total 1230 / 1230 780 / 780
Balance 1230 / 1230 780 / 780
Review of Systems
-
History Source: Patient
All other systems: Reviewed and negative
[2023-06-27] MEDS: STERILE WATER FOR INJECTION 20 ML IV (13:38)
[2023-06-27] MEDS: ROCEPHIN 2000 MG IV (13:38)
--- NOTE | 2023-06-27 14:33 | W.PN.ID1 ---
Date of Service
Date of Service: June 27, 2023
Today's Communication
Continue ceftriaxone.
Assessment / Plan
# Streptococcal bacteremia (3 sets bcx's)
# s/p sepsis
# Acute on chronic left neck pain
-Source of bacteremia unclear at this time
- For MRI C-spine with contrast
- TTE Wednesday
-Follow repeat blood cultures.
-Continue ceftriaxone
#Additional Past Medical History:
Afib
CAD s/p CABG, stent
HFpEF
HTN
AAA
CKD3
Peripheral vascular disease with, iliac artery angioplasty and occluded right SFA
Carotid stenosis
pulmonary hypertension
bilateral renal stenosis s/p stents
BPH
Chief Complaint
-: Bacteremia
Subjective / Review of Systems
Neck pain stable
Vital Signs / Physical Exam
Vital Signs
Vital Signs
Temp Pulse Resp BP Pulse Ox
97.4 F 70 18 169/66 97
06/27/23 11:28 06/27/23 11:28 06/27/23 11:28 06/27/23 11:28 06/27/23 11:28
Physical Exam
Constitutional: No Acute Distress and Comfortable
Pulmonary: Clear
Gastrointestinal: Soft, Non Tender and Non Distended
Extremities: Negative Edema
Neurological: AO x 3
Objective Data
Lab Data
Lab Results
06/27/23 06:49
06/27/23 06:49
Estimated Creat Clear 52 ml/min 06/27/23 06:49
Lactic Acid Cancelled 06/25/23 12:15
Total Bilirubin 3.2 mg/dl (0.2-1.3) H 06/25/23 08:10
AST 42 U/L (17-59) 06/25/23 08:10
ALT 35 U/L (0-50) 06/25/23 08:10
Alkaline Phosphatase 76 U/L (38-126) 06/25/23 08:10
C-Reactive Protein 164.20 mg/L (0.0-10.00) H 06/27/23 06:49
Most recent labs reviewed.
Micro Results:
06/25/23 18:56 Blood Culture - Preliminary
Blood/Venous Streptococcus species
Gram Stain - Preliminary
06/25/23 08:10 Blood Culture - Preliminary
Blood/Venous Streptococcus species
Gram Stain - Final
06/25/23 08:11 Blood Culture - Preliminary
Blood/Venous Streptococcus species
Gram Stain - Final
06/26/23 08:54 Blood Culture - Preliminary
Blood/Venous No Growth in 24 hours- Final report to follow
06/27/23 06:49 Blood Culture - Pending
Blood/Venous
06/25/23 08:10 Influenza Types A & B (YANNI) - Final
Nasal Swab Negative for Influenza A & B, NAAT
Negative results must be combined with clinical observations
and patient history.
Nucleic Acid Amplification test (NAAT)performed on the
[employer] platform.
06/25/23 CXR: Pulmonary vasculature is top normal
06/26/23 MRI C-spine wo: MODERATE SPINAL CORD COMPRESSION and CENTRAL CANAL STENOSIS at C4/C5 and C5/C6 secondary to central disc-osteophyte complexes.
2. Severe left neural foraminal narrowing at C2/C3, C3/C4, and C4/C5.
3. Severe right neural foraminal narrowing at C5/C6.
4. SEVERE LEFT-SIDED FACET JOINT ARTHROSIS at C2/C3 and C3/C4 with facet joint effusions and adjacent acute bone marrow and soft tissue edema.
--- NOTE | 2023-06-27 16:54 | CM ---
Patient with Dx localized L neck pain, moderate spinal cord compression and central canal stenosis at C4/C5 and C5/C6, Streptococcal bacteremia, sepsis. Room air. Receiving IV Abx. PT & OT held today.
Met with patient who resides with his in a 2 story house with no DIVYA.
The patient has been independent in ADLs and ambulation.
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
DME - none
VN - prior John
SNF - none
PCP - Cory Gannon
Pharmacy - [facility]
Plan follow up after PT/OT Evals.
[2023-06-27] MEDS: COREG 12.5 MG PO (20:41)
[2023-06-27] MEDS: ASPIR LOW (ENTERIC COATED) 81 MG PO (21:54)
[2023-06-27] MEDS: XARELTO 20 MG PO (21:55)
[2023-06-27] MEDS: LIPITOR 40 MG PO (21:55)
[2023-06-27] MEDS: FLOMAX 0.400000000000000022 MG PO (21:55)
[2023-06-28 03:39] VITALS: BP 141/63
[2023-06-28 05:33] LABS: Mean Corp Hgb Conc. 34.4 g/dL (33.0-37.0); Mean Corpuscular Hgb 29.8 pg (27.0-31.0); Mean Corpuscular Volume 86.7 fL (80.0-94.0); Mean Platelet Volume 11.3 fL (7.4-10.4); Platelet Count 142 10^3/uL (130-400); Red Blood Cell Count 3.69 10^6/uL (4.70-6.10); Red Cell Dist. Width 14.2 % (11.5-14.5); White Blood Cell Count 8.2 10^3/uL (4.8-10.8)
[2023-06-28 05:58] LABS: Blood Urea Nitrogen 24 mg/dl (9-20); Calcium 9.1 mg/dl (8.4-10.2); Carbon Dioxide 25 mmol/L (22-30); Chloride 104 mmol/L (98-107); Estimated Creatinine Clearance 56 ml/min; Glucose 111 mg/dl (70-99); Potassium 4.2 mmol/L (3.5-5.1); Sodium 133 mmol/L (135-145); eGFR > 60.00
[2023-06-28 07:30] VITALS: BP 158/63
--- NOTE | 2023-06-28 09:15 | CARDSERVLU ---
Echocardiogram with [facility] completed after protocol screening completed. Allergies verified.
Patent IV site: ___R AC__
IV site flushed with 0.9% NaCl pre and post administration.
Diluted bolus method utilized to enhance visualization of ventricular gudino.
Total volume given: __2.5__ mL
Patient tolerated all procedures well without complications.
[2023-06-28] MEDS: NSS 250 IV ×2 (09:45→12:48)
[2023-06-28] MEDS: FLUSH (NSS) 2 FLUSH IV ×2 (09:46→12:50)
[2023-06-28] MEDS: COREG 12.5 MG PO (09:46)
[2023-06-28] MEDS: PROSCAR 5 MG PO (09:46)
[2023-06-28] MEDS: NORVASC 10 MG PO (09:46)
--- NOTE | 2023-06-28 11:06 | CM ---
Patient seen bedside. Patient remains on IV antibiotics. PT following, previous session held, watch for recommendations. CM will continue to follow for discharge planning needs.
Plan; home no needs vs VN, watch for PT/OT recommendations.
[2023-06-28 12:37] VITALS: BP 150/74
[2023-06-28] MEDS: LIDOCAINE 4% PATCH 1 PATCH TOPICAL (12:49)
[2023-06-28] MEDS: ROCEPHIN 2000 MG IV (13:00)
[2023-06-28] MEDS: STERILE WATER FOR INJECTION 20 ML IV (13:00)
--- NOTE | 2023-06-28 13:34 | W.PN.HOSP.TC ---
Today's Communication/Plan
-
pt/ot
IV abx, PICC line placed
Assessment / Plan
Assessment / Plan
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
He denies to fever, CP, SOB, abd pain, change in urination etc.
A/P:
# localized L neck pain (worse than baseline)
MRI cervical spine without contrast noted moderate spinal cord compression and central canal stenosis at C4/C5 and C5/C6 ; possible cervical spine septic arthritis may also be superimposed etiology
Tylenol PRN and started trial of lidocaine patch
offered Flexeril but pt would like to hold off due to S/E profile
PT OT eval was declined by pt
curbsided Neurosurgery,- no evidence of infection on MRI;
-Can f/u NSG outpatient - spoke to Dr. David
# weakness/poor PO intake with prerenal RANCHO on CKD 3 along with sepsis
# Hyponatremia likely due to above
SCr 1.7 -> 1.3 today; baseline 1.1
Monitor BMP
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
# sepsis POA due to Strep viridans bacteremia , currently unclear source
follow blood culture S/S, repeat blood Cx clearing from 06/25
COVID/Flu negative
s/p vanc/Zosyn, changed to ceftriaxone
Check repeat MR cervical spine WITH contrast for bacteremia (IVF bolus before and after for renal protection) - possible septic arthritis of the cervical spine
ECHO - no vegetations
ID on board
-Continue Ceftriaxone 2g IV q24 through 08/07/23.
- Follow weekly CBC, CMP, CRP
-Ordered PICC
# non-ischemic myocardia injury
trend troponin until peak/plateaued
# HTN
hold losartan/Aldactone due to RANCHO
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
add hydralazine IV PRN
Other PMH:
# Permanent A-fib
cont Xarelto
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
# CAD s/p CABG
# HLD
# AAA
# h/o carotid stenosis
DVT ppx: TAPE CONTROL SKIN OR SPAR MILL OPERATOR Xalreto
FC
DW on the phone
total time spent 52 min
Anticipated Discharge: Within 24 hours
Subjective/Interval History
-
Date of Service: June 28, 2023
No acute events overnight
Objective Data
-
Labs:
Laboratory Results
06/28/23
04:58
WBC 8.2
Hgb 11.0 L
Hct 32.0 L
Plt Count 142
Sodium 133 L
Potassium 4.2
Chloride 104
Carbon Dioxide 25
BUN 24 H
Creatinine 1.2
Glucose 111 H
Calcium 9.1
Vital Signs:
Vital Signs
Temp Pulse Resp BP Pulse Ox
97.6 F 67 18 150/74 96
06/28/23 12:37 06/28/23 12:37 06/28/23 12:37 06/28/23 12:37 06/28/23 12:37
I&O
06/27/23 06/28/23 06/29/23
06:59 06:59 06:59
Intake Total 780 / 780 720 / 720
Output Total 500 / 500
Balance 780 / 780 220 / 220
Review of Systems
-
History Source: Patient
All other systems: Not reviewed unless documented
Physical Exam
-
General: Well Developed, Well Nourished, No Apparent Distress and Comfortable
HEENT: Normocephalic and Atraumatic
Respiratory: Clear to Auscultation and Non Labored Respirations; Negative Accessory Resp Muscle Use
Cardiac: Regular Rhythm and S1/S2
GI: Soft, Nontender and Nondistended
Skin: Warm and Dry
Neuro: Awake and AO x 3
Hematologic / Lymphatic: No Lymphadenopathy
Psych: Calm and Intact Judgement/Insight
Data Reviewed
-
Diagnostic Radiology: Image personally visualized and interpreted and Report Reviewed by me
MRI: Image personally visualized and interpreted and Report Reviewed by me
Medical Tests (Nuc Med, Echo etc): Image personally visualized and interpreted and Report Reviewed by me
Labs: Labs Reviewed by me
--- NOTE | 2023-06-28 13:53 | W.PN.ID1 ---
Date of Service
Date of Service: June 28, 2023
Today's Communication
Continue Ceftriaxone 2g IV q24 through 08/07/23.
Follow weekly CBC, CMP, CRP
Ordered PICC
Assessment / Plan
# Streptococcal viridans bacteremia (3 sets bcx's)
# Possible Cervical spine septic arthritis
# s/p sepsis
# Acute on chronic left neck pain
-Source of bacteremia unclear at this time
- For MRI C-spine with contrast: SEVERE LEFT-SIDED FACET JOINT ARTHROSIS at C2/C3 and C3/4 with small facet joint effusions, severe adjacent enhancing bone marrow edema, and mild surrounding enhancing soft tissue edema. Diagnostic possibilities are
(1) severe degenerative disease/osteoarthritis or (2) less likely septic arthritis.
- TTE neg gross vegetation.
-Repeat blood cultures neg to date.
- Since can't completely rule out septic arthritis of cervical spine, will err on the side of caution and treat with 6 weeks IV abx.
-Continue Ceftriaxone 2g IV q24 through 08/07/23.
Follow weekly CBC, CMP, CRP
-Ordered PICC
- Pt and requesting referral to child care specialist for disc herniations reported in MRI.
#Additional Past Medical History:
Afib
CAD s/p CABG, stent
HFpEF
HTN
AAA
CKD3
Peripheral vascular disease with, iliac artery angioplasty and occluded right SFA
Carotid stenosis
pulmonary hypertension
bilateral renal stenosis s/p stents
BPH
Chief Complaint
-: Bacteremia
Subjective / Review of Systems
No new complaints.Neck pain stable.
Vital Signs / Physical Exam
Vital Signs
Vital Signs
Temp Pulse Resp BP Pulse Ox
97.6 F 67 18 150/74 96
06/28/23 12:37 06/28/23 12:37 06/28/23 12:37 06/28/23 12:37 06/28/23 12:37
Physical Exam
Constitutional: No Acute Distress and Comfortable
Pulmonary: Clear
Gastrointestinal: Soft, Non Tender and Non Distended
Genito-Urinary: Negative CVA Tenderness
Objective Data
Lab Data
Lab Results
06/28/23 04:58
06/28/23 04:58
Estimated Creat Clear 56 ml/min 06/28/23 04:58
Lactic Acid Cancelled 06/25/23 12:15
Total Bilirubin 3.2 mg/dl (0.2-1.3) H 06/25/23 08:10
AST 42 U/L (17-59) 06/25/23 08:10
ALT 35 U/L (0-50) 06/25/23 08:10
Alkaline Phosphatase 76 U/L (38-126) 06/25/23 08:10
C-Reactive Protein 89.50 mg/L (0.0-10.00) H 06/28/23 04:58
Most recent labs reviewed.
Micro Results:
06/25/23 18:56 Blood Culture - Final
Blood/Venous Viridans Streptococcus Group
Gram Stain - Final
06/25/23 08:10 Blood Culture - Final
Blood/Venous Viridans Streptococcus Group
Gram Stain - Final
06/25/23 08:11 Blood Culture - Final
Blood/Venous Viridans Streptococcus Group
Gram Stain - Final
06/26/23 08:54 Blood Culture - Preliminary
Blood/Venous No Growth in 48 hours- Final report to follow
06/27/23 06:49 Blood Culture - Preliminary
Blood/Venous No Growth in 24 hours- Final report to follow
06/28/23 04:58 Blood Culture - Pending
Blood/Venous
06/25/23 08:10 Influenza Types A & B (YANNI) - Final
Nasal Swab Negative for Influenza A & B, NAAT
Negative results must be combined with clinical observations
and patient history.
Nucleic Acid Amplification test (NAAT)performed on the
[email or web address] platform.
06/25/23 CXR: Pulmonary vasculature is top normal
06/28/23 MRI C-spine w contrast: SEVERE LEFT-SIDED FACET JOINT ARTHROSIS at C2/C3 and C3/4 with small facet joint effusions, severe adjacent enhancing bone marrow edema, and mild surrounding enhancing soft tissue edema. Diagnostic possibilities are
(1) severe degenerative disease/osteoarthritis or (2) less likely septic arthritis.
Care Review
Plan reviewed with: Physician (Dr. Song)
[2023-06-28 15:40] VITALS: BP 175/68
[2023-06-28 19:39] VITALS: BP 169/60
[2023-06-28] MEDS: APRESOLINE 10 MG IV (20:15)
[2023-06-28] MEDS: XARELTO 20 MG PO (21:19)
[2023-06-28] MEDS: FLOMAX 0.400000000000000022 MG PO (21:19)
[2023-06-28] MEDS: ASPIR LOW (ENTERIC COATED) 81 MG PO (21:19)
[2023-06-28] MEDS: LIPITOR 40 MG PO (21:19)
--- NOTE | 2023-06-28 22:00 | PTCARENOTE ---
Manual BP- 180/62, patient did receive PRN hydralazine an hour ago with no effect. Patient is due for his Coreg at this time but his HR- 45-55, intermittency going down to 30s. Patient is asymptomatic. TELLY Moreno made aware. New order to DC
Coreg. Will continue to monitor.
[2023-06-28] MEDS: COREG PO (22:37)
[2023-06-28 23:00] VITALS: BP 185/60
[2023-06-29 03:30] VITALS: BP 140/64
[2023-06-29 05:30] LABS: Hematocrit 30.2 % (39.0-52.0); Hemoglobin 10.4 g/dL (13.0-18.0); Mean Corp Hgb Conc. 34.4 g/dL (33.0-37.0); Mean Platelet Volume 11.3 fL (7.4-10.4); Platelet Count 168 10^3/uL (130-400); Red Blood Cell Count 3.47 10^6/uL (4.70-6.10); Red Cell Dist. Width 14.3 % (11.5-14.5); White Blood Cell Count 7.9 10^3/uL (4.8-10.8)
[2023-06-29 05:48] LABS: ALT (SGPT) 63 U/L (0-50); AST (SGOT) 39 U/L (17-59); Alkaline Phosphatase 89 U/L (38-126); Blood Urea Nitrogen 20 mg/dl (9-20); Calcium 8.8 mg/dl (8.4-10.2); Carbon Dioxide 23 mmol/L (22-30); Chloride 105 mmol/L (98-107); Estimated Creatinine Clearance 68 ml/min; Glucose 107 mg/dl (70-99); Potassium 4.3 mmol/L (3.5-5.1); Sodium 133 mmol/L (135-145); Total Bilirubin 1.1 mg/dl (0.2-1.3); Total Protein 5.5 g/dl (6.3-8.2); eGFR > 60.00
[2023-06-29 07:35] VITALS: BP 168/63
[2023-06-29] MEDS: NORVASC 10 MG PO (09:20)
[2023-06-29] MEDS: PROSCAR 5 MG PO (09:21)
[2023-06-29] MEDS: LIDOCAINE 4% PATCH 1 PATCH TOPICAL (09:44)
[2023-06-29 10:22] VITALS: BP 165/63; BP 177/64; PULSE 52; O2SAT 98
--- NOTE | 2023-06-29 10:33 | PTOTSP ---
Acute care PT will sign off as Pt is functioning independently without AD.
[2023-06-29 11:15] VITALS: BP 148/64; PULSE 83; O2SAT 97
--- NOTE | 2023-06-29 11:17 | CM ---
Addendum entered by Rylee Fairbanks 06/29/23 14:21:
CM spoke with Areli from [facility], will be here at hospital to do teaching, will review cost and coverage with patient and . CM met with patient and bedside, IMM signed, placed in chart. CM will continue to follow for discharge planning
needs.
Plan; home with [facility] and
[facility]
Original Note:
Patient seen bedside, aware he will need IV antibiotics upon discharge, agreeable to clinicals to be sent to [facility]. Message sent to Areli with [facility] with patients information. CM will wait to hear from Areli in regards to setting up home
IV antibiotics.
Plan; home with [facility], awaiting confirmation of acceptance of patient.
[2023-06-29 11:20] VITALS: BP 163/66
--- NOTE | 2023-06-29 11:20 | W.PN.HOSP.TC ---
Addendum entered and electronically signed by Mathew Ruiz MD 06/29/23 16:39:
[id number]
Original Note:
Today's Communication/Plan
-
Ceftriaxone 2g IV q24 through 08/07/23.
Follow weekly CBC, CMP, CRP
Resume home antihypertensives on dc
Assessment / Plan
Assessment / Plan
HPI: 78-year-old male PMH Permanent A-fib on Xarelto, CAD s/p stent and CABG, HTN, HLD, AAA, CKD 3, carotid stenosis; presented with localized L neck pain (worse than baseline), chills, nausea, weakness and loss of appetitive ongoing for 3 days [employer].
He denies to fever, CP, SOB, abd pain, change in urination etc.
A/P:
# localized L neck pain (worse than baseline)
MRI cervical spine without contrast noted moderate spinal cord compression and central canal stenosis at C4/C5 and C5/C6 ; possible cervical spine septic arthritis may also be superimposed etiology
Tylenol PRN and started trial of lidocaine patch
offered Flexeril but pt would like to hold off due to S/E profile
PT OT eval was declined by pt
curbsided Neurosurgery,- no evidence of infection on MRI;
-Can f/u NSG outpatient - spoke to Dr. David
# weakness/poor PO intake with prerenal RANCHO on CKD 3 along with sepsis
# Hyponatremia likely due to above
-mild
-ctm outpatient
#RANCHO
-resolved
-resume antihypertensives
# sepsis POA due to Strep viridans bacteremia , currently unclear source
follow blood culture S/S, repeat blood Cx clearing from 06/25
COVID/Flu negative
s/p vanc/Zosyn, changed to ceftriaxone
repeat MR cervical spine WITH contrast for bacteremia (IVF bolus before and after for renal protection) - possible septic arthritis of the cervical spine
ECHO - no vegetations
ID on board
-Continue Ceftriaxone 2g IV q24 through 08/07/23.
- Follow weekly CBC, CMP, CRP
-Ordered PICC
# non-ischemic myocardia injury
trend troponin until peak/plateaued
# HTN
resume losartan/Aldactone
as resuming other antihypertensives - go back to home dose toprol
titrate as needed outpatient
Other PMH:
# Permanent A-fib
cont Xarelto
[employer] Toprol
# CAD s/p CABG
# HLD
# AAA
# h/o carotid stenosis
DVT ppx: [employer] Xalreto
FC
More than 30 minutes spent in discharge including
Final examination of the patient
Summarizing hospital stay
Instructions for continuing care to all relevant caregivers
Preparation of discharge records, prescriptions, and referral forms
Total time spent (34 in minutes):
Anticipated Discharge: Today
Subjective/Interval History
-
Date of Service: June 29, 2023
No acute vents overnight
Objective Data
-
Labs:
Laboratory Results
06/29/23
04:15
WBC 7.9
Hgb 10.4 L
Hct 30.2 L
Plt Count 168
Sodium 133 L
Potassium 4.3
Chloride 105
Carbon Dioxide 23
BUN 20
Creatinine 1.0
Glucose 107 H
Calcium 8.8
Total Bilirubin 1.1
AST 39
ALT 63 H
Alkaline Phosphatase 89
Vital Signs:
Vital Signs
Temp Pulse Resp BP Pulse Ox
97.8 F 51 18 168/63 95
06/29/23 07:35 06/29/23 09:20 06/29/23 07:35 06/29/23 09:20 06/29/23 07:35
I&O
06/28/23 06/29/23 06/30/23
06:59 06:59 06:59
Intake Total 720 / 720 1819
Output Total 500 / 500
Balance 220 / 220 1819
Review of Systems
-
History Source: Patient
All other systems: Not reviewed unless documented
Physical Exam
-
General: Well Developed, Well Nourished, No Apparent Distress and Comfortable
HEENT: Normocephalic and Atraumatic
Respiratory: Clear to Auscultation and Non Labored Respirations; Negative Accessory Resp Muscle Use
Cardiac: Regular Rhythm and S1/S2
GI: Soft, Nontender and Nondistended
Skin: Warm and Dry
Neuro: Awake and AO x 3
Hematologic / Lymphatic: No Lymphadenopathy
Psych: Calm and Intact Judgement/Insight
Data Reviewed
-
Diagnostic Radiology: Image personally visualized and interpreted and Report Reviewed by me
MRI: Image personally visualized and interpreted and Report Reviewed by me
Medical Tests (Nuc Med, Echo etc): Image personally visualized and interpreted and Report Reviewed by me
Labs: Labs Reviewed by me
--- NOTE | 2023-06-29 11:28 | W.DS.TRANS ---
DC Summary - [employer]
-
Discharge Instructions:
Sleep Apnea Risk Intermediate
Discharge Diagnosis/Procedures Streptococcal viridans bacteremia
Possible Cervical spine septic arthritis
Diet Low Cholesterol,Low Fat
Activity As tolerated
Blood Work Follow weekly CBC, CMP, CRP
Instructions:
Stand-Alone Forms:
Changes to Home Medications: Yes
Discharge Medications:
DC Medications w/original date entered in [employer]
aspirin 81 mg tablet,delayed release 81 mg PO HS Blood clot prevention/tx 12/05/14
atorvastatin 40 mg tablet 40 mg PO HS High cholesterol 12/05/14
rivaroxaban 20 mg tablet (Xarelto) 20 mg PO HS Blood clot prevention/tx 06/09/21
losartan 100 mg tablet 100 mg PO DAILY Blood Pressure 12/10/22
torsemide 10 mg tablet 10 mg PO DAILY Fluid Retention/Swelling 12/10/22
[place] Xl 600 mg PO BID Supplement 06/25/23
acetaminophen 500 mg tablet (Tylenol Extra Strength) 500 mg PO Q6H PRN mild pain 06/25/23
amlodipine 10 mg tablet 10 mg PO DAILY Blood Pressure 06/25/23
cholecalciferol (vitamin D3) 125 mcg (5,000 unit) tablet 125 mcg PO DAILY@1300 Supplement 06/25/23
coQ10 (ubiquinol) 200 mg capsule 200 mg PO DAILY@1300 Supplement 06/25/23
finasteride 5 mg tablet 5 mg PO DAILY prostate condition 06/25/23
glucosamine-chondroitin 750 mg-600 mg tablet 2 tab PO DAILY@1300 Supplement 06/25/23
xpgikutv-egfvjh-bwfxd extract 5 mg-6 mg-150 mg capsule (Fruit and Vegetable Daily) 6 cap PO DAILY Supplement 06/25/23
metoprolol succinate 25 mg tablet,extended release 24 hr (Toprol XL) 25 mg PO DAILY Blood Pressure 06/25/23
spironolactone 50 mg tablet 50 mg PO DAILY Blood Pressure 06/25/23
tamsulosin 0.4 mg capsule 0.4 mg PO HS Urinary Issue 06/25/23
therapeutic multivitamin 1 tab PO DAILY@1300 Supplement 06/25/23
turmeric 400 mg capsule 400 mg PO DAILY@1300 Supplement 06/25/23
ceftriaxone 2 gram solution for injection 2,000 mg IV Q24H #0 ea 06/29/23
lidocaine 4 % topical patch 1 patch topical DAILY #30 ea 06/29/23
Home Medication Changes
ceftriaxone 2 gram solution for injection 2,000 mg IV Q24H #0 ea 06/29/23
lidocaine 4 % topical patch 1 patch topical DAILY #30 ea 06/29/23
Pending Results: No
--- NOTE | 2023-06-29 12:06 | PTOTSP ---
pt currently demonstrates ability to complete simple ADLs, functional transfers, ambulation with supervision to no assistance. no acute OT needs identified at this time, will sign off.
--- NOTE | 2023-06-29 12:38 | W.PN.ID1 ---
Date of Service
Date of Service: June 29, 2023
Today's Communication
DC home when home abx set up.
Assessment / Plan
# Streptococcal viridans bacteremia (3 sets bcx's)
# Possible Cervical spine septic arthritis
# s/p sepsis
# Acute on chronic left neck pain
-Source of bacteremia unclear at this time
- For MRI C-spine with contrast: SEVERE LEFT-SIDED FACET JOINT ARTHROSIS at C2/C3 and C3/4 with small facet joint effusions, severe adjacent enhancing bone marrow edema, and mild surrounding enhancing soft tissue edema. Diagnostic possibilities are
(1) severe degenerative disease/osteoarthritis or (2) less likely septic arthritis.
- TTE neg gross vegetation.
-Repeat blood cultures neg to date.
- Since can't completely rule out septic arthritis of cervical spine, will err on the side of caution and treat with 6 weeks IV abx.
-Continue Ceftriaxone 2g IV q24 through 08/07/23.
Follow weekly CBC, CMP, CRP
-PICC in place
#Additional Past Medical History:
Afib
CAD s/p CABG, stent
HFpEF
HTN
AAA
CKD3
Peripheral vascular disease with, iliac artery angioplasty and occluded right SFA
Carotid stenosis
pulmonary hypertension
bilateral renal stenosis s/p stents
BPH
Chief Complaint
-: Bacteremia
Subjective / Review of Systems
Feels well. Neck pain stable.
Vital Signs / Physical Exam
Vital Signs
Vital Signs
Temp Pulse Resp BP Pulse Ox
97.7 F 68 18 163/66 95
06/29/23 11:20 06/29/23 11:20 06/29/23 11:20 06/29/23 11:20 06/29/23 11:20
Physical Exam
Constitutional: No Acute Distress
Cardiovascular: Regular Rate and S1/S2
Pulmonary: Clear
Gastrointestinal: Soft, Non Tender, Non Distended and Normal Bowel Sounds
Extremities: Negative Edema
Neurological: AO x 3
Objective Data
Lab Data
Lab Results
06/29/23 04:15
06/29/23 04:15
Estimated Creat Clear 68 ml/min 06/29/23 04:15
Lactic Acid Cancelled 06/25/23 12:15
Total Bilirubin 1.1 mg/dl (0.2-1.3) 06/29/23 04:15
AST 39 U/L (17-59) 06/29/23 04:15
ALT 63 U/L (0-50) H 06/29/23 04:15
Alkaline Phosphatase 89 U/L (38-126) 06/29/23 04:15
C-Reactive Protein 61.00 mg/L (0.0-10.00) H 06/29/23 04:15
Most recent labs reviewed.
Micro Results:
06/26/23 08:54 Blood Culture - Preliminary
Blood/Venous No Growth in 72 hours- Final report to follow
06/27/23 06:49 Blood Culture - Preliminary
Blood/Venous No Growth in 48 hours- Final report to follow
06/28/23 04:58 Blood Culture - Preliminary
Blood/Venous No Growth in 24 hours- Final report to follow
06/25/23 18:56 Blood Culture - Final
Blood/Venous Viridans Streptococcus Group
Gram Stain - Final
06/25/23 08:10 Blood Culture - Final
Blood/Venous Viridans Streptococcus Group
Gram Stain - Final
06/25/23 08:11 Blood Culture - Final
Blood/Venous Viridans Streptococcus Group
Gram Stain - Final
06/25/23 08:10 Influenza Types A & B (YANNI) - Final
Nasal Swab Negative for Influenza A & B, NAAT
Negative results must be combined with clinical observations
and patient history.
Nucleic Acid Amplification test (NAAT)performed on the
[employer] NOW platform.
06/25/23 CXR: Pulmonary vasculature is top normal
06/28/23 MRI C-spine w contrast: SEVERE LEFT-SIDED FACET JOINT ARTHROSIS at C2/C3 and C3/4 with small facet joint effusions, severe adjacent enhancing bone marrow edema, and mild surrounding enhancing soft tissue edema. Diagnostic possibilities are
(1) severe degenerative disease/osteoarthritis or (2) less likely septic arthritis.
[2023-06-29] MEDS: ROCEPHIN 2000 MG IV (13:03)
[2023-06-29] MEDS: STERILE WATER FOR INJECTION 20 ML IV (13:04)
--- NOTE | 2023-06-29 14:51 | PTCARENOTE ---
[facility] is at bedside teaching patient and how to administer antibiotics. Patient received dose this afternoon. Tomorrow's dose will be sent to their home this evening. Let MD know this update and that patient is ready for discharge.
--- NOTE | 2023-06-29 15:15 | W.DS.TRANS ---
DC Summary - [employer]
-
Discharge Instructions:
Sleep Apnea Risk Intermediate
Discharge Diagnosis/Procedures Streptococcal viridans bacteremia
Possible Cervical spine septic arthritis
Diet Low Cholesterol,Low Fat
Activity As tolerated
Blood Work Follow weekly CBC, CMP, CRP
Instructions:
Stand-Alone Forms:
Changes to Home Medications: Yes
Discharge Medications:
DC Medications w/original date entered in [employer]
aspirin 81 mg tablet,delayed release 81 mg PO HS Blood clot prevention/tx 12/05/14
atorvastatin 40 mg tablet 40 mg PO HS High cholesterol 12/05/14
rivaroxaban 20 mg tablet (Xarelto) 20 mg PO HS Blood clot prevention/tx 06/09/21
losartan 100 mg tablet 100 mg PO DAILY Blood Pressure 12/10/22
torsemide 10 mg tablet 10 mg PO DAILY Fluid Retention/Swelling 12/10/22
[place] Xl 600 mg PO BID Supplement 06/25/23
acetaminophen 500 mg tablet (Tylenol Extra Strength) 500 mg PO Q6H PRN mild pain 06/25/23
amlodipine 10 mg tablet 10 mg PO DAILY Blood Pressure 06/25/23
cholecalciferol (vitamin D3) 125 mcg (5,000 unit) tablet 125 mcg PO DAILY@1300 Supplement 06/25/23
coQ10 (ubiquinol) 200 mg capsule 200 mg PO DAILY@1300 Supplement 06/25/23
finasteride 5 mg tablet 5 mg PO DAILY prostate condition 06/25/23
glucosamine-chondroitin 750 mg-600 mg tablet 2 tab PO DAILY@1300 Supplement 06/25/23
zoukzuui-ichzhk-bkmwz extract 5 mg-6 mg-150 mg capsule (Fruit and Vegetable Daily) 6 cap PO DAILY Supplement 06/25/23
metoprolol succinate 25 mg tablet,extended release 24 hr (Toprol XL) 25 mg PO DAILY Blood Pressure 06/25/23
spironolactone 50 mg tablet 50 mg PO DAILY Blood Pressure 06/25/23
tamsulosin 0.4 mg capsule 0.4 mg PO HS Urinary Issue 06/25/23
therapeutic multivitamin 1 tab PO DAILY@1300 Supplement 06/25/23
turmeric 400 mg capsule 400 mg PO DAILY@1300 Supplement 06/25/23
ceftriaxone 2 gram solution for injection 2,000 mg IV Q24H #0 ea 06/29/23
lidocaine 4 % topical patch 1 patch topical DAILY #30 ea 06/29/23
Home Medication Changes
ceftriaxone 2 gram solution for injection 2,000 mg IV Q24H #0 ea 06/29/23
lidocaine 4 % topical patch 1 patch topical DAILY #30 ea 06/29/23
Pending Results: No
[2023-06-29 15:35] VITALS: BP 162/64
--- NOTE | 2023-06-29 16:18 | PTCARENOTE ---
Reviewed discharge instructions with patient and . Both verbalize understanding of teaching. Awaiting IV team to change PICC dressing as it has scant bloody drainage.
--- NOTE | 2023-06-29 16:33 | PTCARENOTE ---
Patient escorted via wheelchair by staff member and accompanied by . will transport patient home. [facility] to deliver antibiotics tonight for tomorrow. Both deny questions at this time.
== END 2023-06-29 16:29 | disposition home health service (06) | DRG 872 ==
LOC: 4 EAST ACU 12:36
PROVIDERS: Internal Medicine; Nurse Practitioner Gerontology; Registered Nurse; ADMITTING PHYSICIAN Internal Medicine; ATTENDING PHYSICIAN Internal Medicine; CONSULT PHYSICIAN Internal Medicine Infectious Disease; EMERGENCY PHYSICIAN Student in an Organized Health Care Education/Training Program; FAMILY PHYSICIAN Internal Medicine
PROC: 02HV33Z Insertion of Infusion Device into Superior Vena Cava, Percutaneous Approach (ICD-10-PCS; 2023-06-28)
DX: A40.8 Other streptococcal sepsis (principal); I13.0 Hypertensive heart and chronic kidney disease with heart failure and stage 1 through stage 4 chronic kidney disease, or unspecified chronic kidney disease; E87.1 Hypo-osmolality and hyponatremia; I48.21 Permanent atrial fibrillation; N17.9 Acute kidney failure, unspecified; I5A Non-ischemic myocardial injury (non-traumatic); M50.021 Cervical disc disorder at C4-C5 level with myelopathy; M50.022 Cervical disc disorder at C5-C6 level with myelopathy; I50.32 Chronic diastolic (congestive) heart failure; M46.52 Other infective spondylopathies, cervical region; R53.1 Weakness; N18.30 Chronic kidney disease, stage 3 unspecified; E78.00 Pure hypercholesterolemia, unspecified; I25.10 Atherosclerotic heart disease of native coronary artery without angina pectoris; I71.40 Abdominal aortic aneurysm, without rupture, unspecified; D64.9 Anemia, unspecified; I27.20 Pulmonary hypertension, unspecified; M48.02 Spinal stenosis, cervical region; I73.9 Peripheral vascular disease, unspecified; I65.29 Occlusion and stenosis of unspecified carotid artery; I70.1 Atherosclerosis of renal artery; N40.1 Benign prostatic hyperplasia with lower urinary tract symptoms; R35.0 Frequency of micturition; E86.0 Dehydration; Z11.52 Encounter for screening for COVID-19; Z79.01 Long term (current) use of anticoagulants; Z95.1 Presence of aortocoronary bypass graft; I25.2 Old myocardial infarction; Z95.5 Presence of coronary angioplasty implant and graft; Z87.891 Personal history of nicotine dependence; Z87.01 Personal history of pneumonia (recurrent)
CPT/HCPCS: 71045; 71046; 72141; 72156; 80048; 80053; 81003; 83605; 83735; 83880; 84145; 84484; 85025; 85027; 86140; 87040; 87149; 87186; 87205; 87502; 87811; 93005; 93306; 96360; 97161; 97165; 99285; A9575; Q9950

== ENCOUNTER → 2023-08-24 09:21 | Outpatient (REF) | payer OTHER, SELFPAY | LOC: RAD 09:21 | PROVIDERS: ATTENDING PHYSICIAN Surgery Vascular Surgery; FAMILY PHYSICIAN Internal Medicine | DX: I65.23 Occlusion and stenosis of bilateral carotid arteries (principal); I73.9 Peripheral vascular disease, unspecified | CPT/HCPCS: 93880; 93922; 93925; 93978 ==

== ENCOUNTER → 2023-12-16 12:46 | Outpatient (REF) | payer OTHER, SELFPAY | LOC: REG 12:46 | PROVIDERS: ATTENDING PHYSICIAN Internal Medicine Infectious Disease; FAMILY PHYSICIAN Internal Medicine | DX: R19.7 Diarrhea, unspecified (principal) | CPT/HCPCS: 36415 ==

== ENCOUNTER → 2023-12-28 12:25 | Outpatient (REF) | payer OTHER, SELFPAY | LOC: RAD 12:25 | PROVIDERS: ATTENDING PHYSICIAN Nurse Practitioner Primary Care; FAMILY PHYSICIAN Internal Medicine | DX: R19.7 Diarrhea, unspecified (principal); R10.10 Upper abdominal pain, unspecified; I73.9 Peripheral vascular disease, unspecified; I77.1 Stricture of artery | CPT/HCPCS: 74177; Q9967 ==

== ENCOUNTER 2024-03-08 06:20 | Day surgery (SDC) | payer OTHER, SELFPAY | END 2024-03-08 12:03 | disposition home or self-care (01) | LOC: GI 06:20 | PROVIDERS: ATTENDING PHYSICIAN Internal Medicine Gastroenterology | DX: K52.831 Collagenous colitis (principal); D12.2 Benign neoplasm of ascending colon; D12.8 Benign neoplasm of rectum; K64.8 Other hemorrhoids; K22.70 Barrett's esophagus without dysplasia; K29.80 Duodenitis without bleeding; K21.00 Gastro-esophageal reflux disease with esophagitis, without bleeding; K44.9 Diaphragmatic hernia without obstruction or gangrene; K25.9 Gastric ulcer, unspecified as acute or chronic, without hemorrhage or perforation; R93.3 Abnormal findings on diagnostic imaging of other parts of digestive tract | CPT/HCPCS: 45385; 45380; 43239; 88305; 88313; 88342 ==

== ENCOUNTER → 2024-04-14 08:57 | Outpatient (REF) | payer OTHER, SELFPAY | LOC: DHVS 08:57 | PROVIDERS: ATTENDING PHYSICIAN Surgery Vascular Surgery; FAMILY PHYSICIAN Internal Medicine | DX: I73.9 Peripheral vascular disease, unspecified (principal); I65.23 Occlusion and stenosis of bilateral carotid arteries | CPT/HCPCS: 93880; 93922; 93925 ==

== ENCOUNTER → 2024-05-04 09:55 | Outpatient (REF) | payer OTHER, SELFPAY | LOC: RAD 09:55 | PROVIDERS: ATTENDING PHYSICIAN Internal Medicine | DX: R06.02 Shortness of breath (principal) | CPT/HCPCS: 71046 ==

== ENCOUNTER 2024-08-10 19:00 | Inpatient (IN) | payer OTHER, SELFPAY ==
[2024-08-01 10:22] LABS: Hematocrit 35.2 % (39.0-52.0); Hemoglobin 11.6 g/dL (13.0-18.0); Mean Platelet Volume 11.3 fL (7.4-10.4); Platelet Count 179 10^3/uL (130-400); Red Blood Cell Count 4.14 10^6/uL (4.70-6.10); Red Cell Dist. Width 14.9 % (11.5-14.5); White Blood Cell Count 7.7 10^3/uL (4.8-10.8)
[2024-08-01 12:12] LABS: Blood Urea Nitrogen 30 mg/dl (9-20); Calcium 9.5 mg/dl (8.4-10.2); Carbon Dioxide 25 mmol/L (22-30); Chloride 107 mmol/L (98-107); Glucose 109 mg/dl (70-99); Potassium 4.1 mmol/L (3.5-5.1); Sodium 139 mmol/L (135-145); eGFR 55.53
[2024-08-01 14:04] VITALS: BMI 29.2
[2024-08-08] VITALS (14 sets, daily range): BP systolic 153–193; BP diastolic 52–77; BMI 29.2
[2024-08-08] MEDS: NORMOSOL-R/PLASMALYTE-A 1000 IV (08:59)
--- NOTE | 2024-08-08 10:17 | W.IMMPOSTOP ---
Surgical Immed Post Op Note
-
Primary Surgeon: Jacintofer
Assisting Surgeon: -
Pre-op Diagnosis: BPH, retention
Post-op Diagnosis: same
Procedure Performed: TURP
Anesthesia Type: gen
Specimen / Cultures: chips
Estimated Blood Loss: 1cc
Complications: none
Operative Findings: -
[2024-08-08] MEDS: NSS 1000 IV ×2 (14:52→23:59)
[2024-08-08] MEDS: LOVENOX 40 MG SC (18:40)
[2024-08-08] MEDS: ASPIR LOW (ENTERIC COATED) 81 MG PO (22:42)
[2024-08-08] MEDS: SENOKOT PO (22:42)
[2024-08-08] MEDS: LIPITOR 40 MG PO (22:42)
[2024-08-08] MEDS: FLOMAX 0.4 MG PO (22:42)
[2024-08-09 03:20] VITALS: BP 157/64
[2024-08-09 06:00] VITALS: BMI 29.3
[2024-08-09 07:13] LABS: Hematocrit 34.9 % (39.0-52.0); Hemoglobin 11.4 g/dL (13.0-18.0)
[2024-08-09 07:45] LABS: Blood Urea Nitrogen 19 mg/dl (9-20); Carbon Dioxide 24 mmol/L (22-30); Chloride 106 mmol/L (98-107); Estimated Creatinine Clearance 61 ml/min; Glucose 175 mg/dl (70-99); Potassium 4.5 mmol/L (3.5-5.1); Sodium 135 mmol/L (135-145); eGFR > 60.00
[2024-08-09 08:05] VITALS: BP 186/64
[2024-08-09] MEDS: ALDACTONE 50 MG PO (08:31)
[2024-08-09] MEDS: NORVASC 10 MG PO (08:31)
[2024-08-09] MEDS: DEMADEX 10 MG PO (08:31)
[2024-08-09] MEDS: PROSCAR 5 MG PO (08:31)
[2024-08-09] MEDS: TOPROL XL 25 MG PO (08:31)
[2024-08-09] MEDS: COZAAR 100 MG PO (08:32)
[2024-08-09] MEDS: SENOKOT 17.2 MG PO (08:32)
--- NOTE | 2024-08-09 09:30 | W.PN.URO.CBU ---
Today's Communication / Plan
-
Continue CBI
Assessment / Plan
-
79M with BPH, chronic high volume retention, BEAR on UDS
POD 1 s/p TURP
- Moderate hematuria this AM after CBI clamped - some small clots flushed
- Continue CBI with light traction this AM
- Likely discharge home with franklin vs TOV
- Reassess this afternoon
Diagnosis
-
Date of Service: August 09, 2024
-
Patient Diagnosis:
BPH
Chronic urinary retention
Post Op s/p TURP 08/08
Subjective
-
Feeling well
No pain overnight
Objective
-
Vital Signs
Temp Pulse Resp BP Pulse Ox
97.9 F 66 18 186/64 94
08/09/24 08:05 08/09/24 08:05 08/09/24 08:05 08/09/24 08:05 08/09/24 08:05
Intake and Output
08/08/24 08/09/24 08/10/24
06:59 06:59 06:59
Intake Total 2780 / 2780
Output Total 1450 / 1450
Balance 1330 / 1330
Intake:
Oral fluids 480 / 480
IV fluids (Total) 2300 / 2300
normosol 1100 / 1100
Output:
Urine, [place] 400 / 400
True Urine Output from CBI 1050 / 1050
Laboratory Results
08/09/24 06:27
08/09/24 06:27
Physical Exam
-
General - well developed, well nourished, no acute distress
Chest - clear bilaterally
Abdomen - soft, non-tender, positive bowel sounds, no CVAT, no incisional pain or distention
Franklin in place, red urine with some clots
--- NOTE | 2024-08-09 09:52 | CM ---
Cm reviewed medical records. CM met with patient in room. Patient confirmed demographics. Patient lives independently with . Patient has a history of IV antibiotics and [facility]. No home care is on service at this time. Patient does not have a
history of SNF or DME. Patient is active with his PCP. Patient will use [facility] for medication services.
PLAN: Home with [facility] if needed for franklin care.
[2024-08-09 15:25] VITALS: BP 166/67
[2024-08-09] MEDS: LOVENOX 40 MG SC (17:38)
[2024-08-09] MEDS: SENOKOT PO (21:18)
[2024-08-09] MEDS: ASPIR LOW (ENTERIC COATED) 81 MG PO (21:18)
[2024-08-09] MEDS: LIPITOR 40 MG PO (21:18)
[2024-08-09] MEDS: FLOMAX 0.4 MG PO (21:18)
[2024-08-09 23:00] VITALS: BP 161/66
[2024-08-10 07:35] VITALS: BP 166/81
--- NOTE | 2024-08-10 07:35 | W.PN.URO.CBU ---
Today's Communication / Plan
-
Trial of void
bladder scan
likely discharge
Assessment / Plan
-
79M with BPH, chronic high volume retention, BEAR on UDS
POD 2 s/p TURP
- Hematuria improved and off CBI x18hrs
- Remove franklin for Trial of void this AM
- PVR bladder scan - will expect some degree of retention
Likely discharge today
Diagnosis
-
Date of Service: August 10, 2024
-
Patient Diagnosis:
Post Op Day:
Patient Diagnosis:
BPH
Chronic urinary retention
Post Op s/p TURP 08/08
Subjective
-
no problems overnight, no flushing with CBI off since yesterday
Objective
-
Vital Signs
Temp Pulse Resp BP Pulse Ox
98.2 F 54 18 161/66 94
08/09/24 23:00 08/09/24 23:00 08/09/24 23:00 08/09/24 23:00 08/09/24 23:00
Intake and Output
08/09/24 08/10/24 08/11/24
06:59 06:59 06:59
Intake Total 2780 / 2780 1640 / 1640
Output Total 1450 / 1450 2760 / 2760
Balance 1330 / 1330 -1120 / -1120
Intake:
Oral fluids 480 / 480 1640 / 1640
IV fluids (Total) 2300 / 2300
normosol 1100 / 1100
Output:
Urine, [place] 400 / 400 1660 / 1660
True Urine Output from CBI 1050 / 1050 1100 / 1100
Laboratory Results
08/09/24 06:27
08/09/24 06:27
Physical Exam
-
General - well developed, well nourished, no acute distress
Chest - clear bilaterally
Abdomen - soft, non-tender, positive bowel sounds, no CVAT, no incisional pain or distention
Franklin with clear red urine
[2024-08-10] MEDS: COZAAR 100 MG PO (08:58)
[2024-08-10] MEDS: PROSCAR 5 MG PO (08:58)
[2024-08-10] MEDS: SENOKOT PO (08:58)
[2024-08-10] MEDS: DEMADEX 10 MG PO (08:58)
[2024-08-10] MEDS: ALDACTONE 50 MG PO (08:59)
[2024-08-10] MEDS: NORVASC 10 MG PO (08:59)
[2024-08-10] MEDS: TOPROL XL 25 MG PO (08:59)
--- NOTE | 2024-08-10 12:17 | CM ---
CM following re: discharge planning.
Reviewed pt's chart, met with pt.
Pt is POD 2 s/p TURP, E[place] removed this morning, void trial, continua supportive care.
Discharge order noted. Pt is aware, expressed his agreement and he stated his spouse will transport home.
No after care VN services indicated. Pt is independent with functional ability.
D/c plan: home no needs. Spouse to transport.
[2024-08-10 15:25] VITALS: BP 185/54
== END 2024-08-10 20:00 | disposition home or self-care (01) | DRG 714 ==
LOC: 2 SOUTH 19:00
PROVIDERS: ADMITTING PHYSICIAN Urology; FAMILY PHYSICIAN Internal Medicine; OTHER PHYSICIAN Internal Medicine Cardiovascular Disease
PROC: 0VB08ZZ Excision of Prostate, Via Natural or Artificial Opening Endoscopic (ICD-10-PCS; 2024-08-10)
DX: N40.1 Benign prostatic hyperplasia with lower urinary tract symptoms (principal); R33.8 Other retention of urine; N32.0 Bladder-neck obstruction; I48.91 Unspecified atrial fibrillation
CPT/HCPCS: 52601; 88305; 36415; 80048; 85014; 85018; 85027

== ENCOUNTER → 2024-09-21 10:24 | Outpatient (REF) | payer OTHER, SELFPAY | LOC: RCS 10:24 | PROVIDERS: ATTENDING PHYSICIAN Internal Medicine Cardiovascular Disease; FAMILY PHYSICIAN Internal Medicine | DX: I50.32 Chronic diastolic (congestive) heart failure (principal); I10 Essential (primary) hypertension | CPT/HCPCS: 93306 ==

== ENCOUNTER 2025-02-12 12:43 | Outpatient (RCR) | payer OTHER, SELFPAY ==
[2025-02-05] MEDS: VENOFER 110 MG IV (12:08)
[2025-02-05 12:12] VITALS: BP 155/56; BMI 29.0
[2025-02-12 13:00] VITALS: BP 139/36
[2025-02-12] MEDS: VENOFER 110 MG IV (13:20)
[2025-02-12 13:34] VITALS: BP 140/38
[2025-02-12 14:50] VITALS: BP 160/40
== END 2025-02-13 12:31 | disposition home or self-care (01) ==
LOC: OID 12:43
PROVIDERS: ATTENDING PHYSICIAN Internal Medicine
DX: D64.9 Anemia, unspecified (principal); I48.21 Permanent atrial fibrillation; I50.32 Chronic diastolic (congestive) heart failure; Z87.891 Personal history of nicotine dependence; Z95.1 Presence of aortocoronary bypass graft
CPT/HCPCS: 96365; J1756

== ENCOUNTER → 2025-02-22 12:43 | Outpatient (REF) | payer OTHER, SELFPAY | LOC: RSP 12:43 | PROVIDERS: ATTENDING PHYSICIAN Internal Medicine | DX: R06.09 Other forms of dyspnea (principal) | CPT/HCPCS: 88738; 94010; 94727; 94729 ==

== ENCOUNTER 2025-03-05 10:24 | Outpatient (RCR) | payer OTHER, SELFPAY ==
[2025-02-19] MEDS: VENOFER 110 MG IV (14:45)
[2025-02-19 14:49] VITALS: BP 151/56
[2025-02-26 11:00] VITALS: BP 162/42
[2025-02-26] MEDS: VENOFER 110 MG IV (11:15)
[2025-02-26 12:26] VITALS: BP 167/39
[2025-02-26 12:40] VITALS: BP 167/39
[2025-03-05 10:37] VITALS: BP 172/68
[2025-03-05] MEDS: VENOFER 110 MG IV (10:55)
[2025-03-05 12:21] VITALS: BP 180/68
== END 2025-03-06 09:23 | disposition home or self-care (01) ==
LOC: OID 10:24
PROVIDERS: ATTENDING PHYSICIAN Internal Medicine
DX: D64.9 Anemia, unspecified (principal); I48.21 Permanent atrial fibrillation; I50.32 Chronic diastolic (congestive) heart failure; Z87.891 Personal history of nicotine dependence; Z95.1 Presence of aortocoronary bypass graft
CPT/HCPCS: 96365; J1756